=== PATIENT | male | born 1995 | race Caucasian/White ===

== ENCOUNTER → 2020-12-11 13:07 | Outpatient (BNVA) | payer OTHER, SELFPAY | PROVIDERS: Visit Provider Internal Medicine ==

== ENCOUNTER → 2020-12-20 13:52 | Outpatient (BNVA) | payer OTHER, SELFPAY | PROVIDERS: Visit Provider Internal Medicine | DX: Z72.89 Other problems related to lifestyle (principal) | CPT/HCPCS: 80305 ==

== ENCOUNTER → 2021-01-03 14:56 | Outpatient (BNVA) | payer OTHER, SELFPAY | PROVIDERS: Visit Provider Internal Medicine ==

== ENCOUNTER → 2021-03-11 11:40 | Outpatient (BNVA) | payer OTHER, SELFPAY | PROVIDERS: PCP Hospitalist; Visit Provider Internal Medicine | DX: F10.10 Alcohol abuse, uncomplicated (principal) | CPT/HCPCS: 80305; 96372 ==

== ENCOUNTER → 2021-04-08 10:23 | Outpatient (BNVA) | payer MEDICAID, SELFPAY | PROVIDERS: PCP Hospitalist; Visit Provider Internal Medicine | DX: F10.11 Alcohol abuse, in remission (principal) | CPT/HCPCS: 80305; 96372; 99212; J2315 ==

== ENCOUNTER → 2021-05-06 13:49 | Outpatient (BNVA) | payer MEDICAID, SELFPAY | PROVIDERS: Visit Provider Internal Medicine | DX: F10.10 Alcohol abuse, uncomplicated (principal); F17.200 Nicotine dependence, unspecified, uncomplicated; Z23 Encounter for immunization | CPT/HCPCS: 80305; 96372; 99212; J2315 ==

== ENCOUNTER → 2021-06-03 13:44 | Outpatient (BNVA) | payer MEDICAID, SELFPAY | PROVIDERS: Visit Provider Internal Medicine | DX: Z51.81 Encounter for therapeutic drug level monitoring (principal); F10.10 Alcohol abuse, uncomplicated | CPT/HCPCS: 80305; 96372; 99212; J2315 ==

== ENCOUNTER → 2021-07-01 14:30 | Outpatient (BNVA) | payer MEDICAID, SELFPAY | PROVIDERS: Visit Provider Internal Medicine | DX: F10.10 Alcohol abuse, uncomplicated (principal); Z51.81 Encounter for therapeutic drug level monitoring; Z79.899 Other long term (current) drug therapy | CPT/HCPCS: 96372; 99212 ==

== ENCOUNTER → 2021-07-29 14:27 | Outpatient (BNVA) | payer MEDICAID, SELFPAY | PROVIDERS: Visit Provider Internal Medicine | DX: F10.10 Alcohol abuse, uncomplicated (principal) | CPT/HCPCS: 80305; 96372; 99212; J2315 ==

== ENCOUNTER → 2021-08-26 14:25 | Outpatient (BNVA) | payer MEDICAID, SELFPAY | PROVIDERS: Visit Provider Internal Medicine | DX: F10.10 Alcohol abuse, uncomplicated (principal); Z51.81 Encounter for therapeutic drug level monitoring; Z79.01 Long term (current) use of anticoagulants | CPT/HCPCS: 96372; 99212; J2315 ==

== ENCOUNTER → 2021-10-08 15:19 | Outpatient (BNVA) | payer MEDICAID, SELFPAY | PROVIDERS: Visit Provider Internal Medicine | DX: F10.10 Alcohol abuse, uncomplicated (principal) | CPT/HCPCS: 96372; 99212; J2315 ==

== ENCOUNTER → 2021-11-11 14:38 | Outpatient (BNVA) | payer MEDICAID, SELFPAY | PROVIDERS: Visit Provider Internal Medicine | DX: F10.10 Alcohol abuse, uncomplicated (principal) | CPT/HCPCS: 96372; 99212; J2315 ==

== ENCOUNTER → 2021-12-19 16:58 | Outpatient (BNVA) | payer MEDICAID, SELFPAY | PROVIDERS: Visit Provider Internal Medicine | DX: F10.10 Alcohol abuse, uncomplicated (principal) | CPT/HCPCS: 80305; 96372; 99212; J2315 ==

== ENCOUNTER → 2022-01-27 15:35 | Outpatient (BNVA) | payer OTHER, SELFPAY | PROVIDERS: Visit Provider Internal Medicine | DX: F10.10 Alcohol abuse, uncomplicated (principal); F17.200 Nicotine dependence, unspecified, uncomplicated; Z51.81 Encounter for therapeutic drug level monitoring | CPT/HCPCS: 99212; J2315 ==

== ENCOUNTER → 2022-02-24 15:01 | Outpatient (BNVA) | payer OTHER, SELFPAY | PROVIDERS: Visit Provider Internal Medicine | DX: Z51.81 Encounter for therapeutic drug level monitoring (principal); F10.10 Alcohol abuse, uncomplicated; F17.210 Nicotine dependence, cigarettes, uncomplicated | CPT/HCPCS: 99212 ==

== ENCOUNTER → 2022-03-04 14:55 | Outpatient (BNVA) | payer OTHER, SELFPAY | PROVIDERS: Visit Provider Internal Medicine | DX: F10.10 Alcohol abuse, uncomplicated (principal) | CPT/HCPCS: 99212 ==

== ENCOUNTER 2022-05-01 20:23 | Emergency (ER) | payer OTHER, SELFPAY ==
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
[2022-05-01 20:38] VITALS: BP 159/106; PULSE 103; RESP 16; TEMP 36.8; O2SAT 95; BMI 25.3
--- NOTE | 2022-05-01 20:57 | PC.NURSE ---
Pt presented to ER with thoughts of harming himself. Pt states he wants to tie something around his neck so he can't breathe anymore. Pt reported he is going through a breakup at the moment. Also admits to daily drinking, a sleeve of nips per day. Pt states he is still having thoughts of hurting himself. Pt also presented with self-inflicted wounds in on his right arm. Pt states they were caused by scissors. One wound, closer to the hand, is large and wide. Bleeding is controlled, wound was cleaned and bandaged. Pt continues to fidget with the bandage, appears very fixated on the wound, commenting that he is impressed at the size and he wants more cuts. Pt also reported he punched a table at home. His left hand is swollen and bruised, pt reports pain in the hand as well. Expects it may be broken, as he has broken it in the past.
[2022-05-01 21:04] VITALS: BP 159/106; PULSE 103; RESP 16; TEMP 36.8; O2SAT 95
[2022-05-01 21:06] LABS: Appearance Urine Clear; Color Urine Yellow; Glucose Urine UA Negative (Negative); Leukocyte Esterase Urine Small (1+) (Negative); Nitrite Urine Negative (Negative); PH 6.5 (5.0-9.0); UMIC TRIGGER UACC YES; Urine Blood Negative (Negative); Urine Ketones Negative (Negative); Urine Protein Negative (Neg-Trace)
[2022-05-01 21:18] LABS: COVID-19 Test Negative (Negative)
--- NOTE | 2022-05-01 21:20 | PC.NURSE ---
N referral complete. COVID and urines sent to the lab.
[2022-05-01 21:22] LABS: Amphetamine Screen Urine Not Detected (Not Detect); Barbiturates, Urine Not Detected (Not Detect); Benzodiazepines Screen Urine Not Detected (Not Detect); Cannabinoid Screen Urine Not Detected (Not Detect); Cocaine Screen Urine Not Detected (Not Detect); Fentanyl, urine Not Detected (Not Detect); Opiate Screen Urine Not Detected (Not Detect); Phencyclidine Screen Urine Not Detected (Not Detect)
[2022-05-01 21:24] LABS: Bacteria Urine None Seen (None Seen); Hyaline Casts Urine 0-2 /LPF (0-2); RBC Urine 0-2 /HPF (0-2); Squamous Epithelial Cell Urine 0-2 /HPF (0-2); UACC Culture Trigger YES; WBC Urine 0-5 /HPF (0-5)
--- NOTE | 2022-05-01 21:25 | ED.PSYCH ---
HPI - Psych General Chief Complaint: Psychiatric Symptoms <GLENYS Sales Last Filed: 05/01/22 23:20> Stated Complaint: Suicidal / Open cut on arm <GLENYS Sales Last Filed: 05/01/22 23:20> Time Seen by Provider: 05/01/22 20:54 <GLENYS Sales Last Filed: 05/01/22 23:20> Source: patient <GLENYS Sales Last Filed: 05/01/22 23:20> Mode of arrival: ambulatory <GLENYS Sales Last Filed: 05/01/22 23:20> Limitations: no limitations <GLENYS Sales Last Filed: 05/01/22 23:20> History of Present Illness HPI Narrative: 27-year-old male history of alcohol abuse, anxiety, depression presents with suicide attempt by cutting wrist, patient reports that he was also drinking tonight, he reports he is having a tough time coping with a recent break up. Patient also reports anxiety and depression. He tells me cut his wrist in hopes to kill himself. Denies visual, auditory and tactile hallucinations. Reports marijuana use however no other drugs, he also reports alcohol use had a sleeve of whiskey, and tells me that he smokes 1 pack of cigarettes per day. Patient denies medical complaints at this time. Unsure of tetanus status <GLENYS Sales Last Filed: 05/01/22 23:20> Related Data Home Medications: Home Medications Medication Instructions Recorded Confirmed escitalopram oxalate 20 mg tablet 20 mg PO DAILY 12/11/20 05/01/22 bupropion HCl 300 mg 24 hr tablet, 300 mg PO DAILY 05/01/22 05/01/22 extended release <GLENYS Sales Last Filed: 05/01/22 23:20> Allergies/Adverse Reactions: Allergies Allergy/AdvReac Type Severity Reaction Status Date / Time No Known Allergies Allergy Verified 02/24/22 15:21 [No Known Allergies*] <GLENYS Sales Last Filed: 05/01/22 23:20> Review of Systems Review of Systems: Constitutional : No Weight loss, No Fever, No Chills, No Fatigue, No Malaise ENT/Mouth : No sore throat, No Rhinorrhea Eyes: No Eye Pain, No Swelling, No Redness Cardiovascular : No Chest Pain, No SOB, No Dyspnea on Exertion, No Orthopnea, No Edema, No Palpitations Respiratory : No Cough, No Sputum, No Wheezing Gastrointestinal : No Nausea, No Vomiting, No Diarrhea, No Constipation, No abdominal Pain, No Hematochezia, No Melena Genitourinary : No Dysuria, No Urinary Frequency, No Hematuria, Musculoskeletal : No joint pain, No Myalgias, No Joint Swelling Skin : No Skin Lesions, No rash Neuro : No Weakness, No Numbness, No Dizziness, No Headache Psych : No Anxiety/Panic, No Depression All other systems reviewed and are negative <GLENYS Sales - Last Filed: 05/01/22 23:20> Yes all other systems are reviewed and are negative <GLENYS Sales - Last Filed: 05/01/22 23:20> [facility] [place] Past Medical History Attestation statement: The following information was validated with the patient. <GLENYS Sales - Last Filed: 05/01/22 23:20> Source: old records reviewed and nursing notes reviewed <GLENYS Sales - Last Filed: 05/01/22 23:20> Medical History: Medical History Alcohol abuse Alcohol use disorder <GLENYS Sales - Last Filed: 05/01/22 23:20> Family History Family History: Family History Mother Depression Father Testicular cancer <GLENYS Sales - Last Filed: 05/01/22 23:20> Social History Social History: Social History Alcohol intake: current Alcohol intake frequency: 3 or more drinks per day Patient Tobacco Use Status: Current everyday Tobacco user Cigarettes Per Day: 20 Years Smoked: 10 Smoked in Last 30 Days: Yes Use of substances other than those prescribed or required for medical reasons: No Advance Directives: No Advance Directives Information Provided: No <GLENYS Sales - Last Filed: 05/01/22 23:20> Physical Exam Vital Signs: Vital Signs: Last Vital Signs Temp 98.5 F 05/02/22 06:39 Pulse 72 05/02/22 06:39 Resp 17 05/02/22 06:39 BP 140/89 H 05/02/22 06:39 Pulse Ox 97 05/02/22 06:39 O2 Del Method 05/02/22 06:39 BMI result Body Mass Index 25.3 vss hypertension likely secondary to anxiety <GLENYS Sales - Last Filed: 05/01/22 23:20> Vital Signs: Last Vital Signs Temp 98.5 F 05/02/22 06:39 Pulse 72 05/02/22 06:39 Resp 17 05/02/22 06:39 BP 140/89 H 05/02/22 06:39 Pulse Ox 97 05/02/22 06:39 O2 Del Method 05/02/22 06:39 BMI result Body Mass Index 25.3 <Pollo Hanson MD - Last Filed: 05/02/22 10:45> Appearance: Alert.? Oriented X3.? No acute distress.? Head: Normocephalic, atraumatic, no step-offs or deformities Eyes: Pupils equal, round and reactive to light.? Neck: Normal inspection.? Neck supple.? CVS: Normal heart rate and rhythm.? Pulses normal.? Respiratory: No respiratory distress.? Breath sounds normal.? Abdomen: Soft and nontender.? Skin: Skin warm and dry.? Normal skin color.? Normal skin turgor.?+ self inflected a laceration to left wrist, will require repair Extremities: No lower extremity edema.? No calf ttp. 5/5 strength to bilateral upper and lower extremities 2+ radial pulses equal bilateral. No wrist drop. Swelling to the dorsal aspects of bilateral hands with some ecchymosis. Neuro: Oriented X 3.? No motor deficit.? No sensory deficit. CN 2-12 intact <GLENYS Sales - Last Filed: 05/01/22 23:20> Course Reevaluation(s) Reevaluation #1: 3 x 4-0 sutures were used wrist laceration. Patient tolerated procedure well. Will be given Boostrix shot. Return in 7-10 day for suture removal. CBC appears to be within normal limits. Chemistry with elevated anion gap likely secondary to patient drinking a whole sleeve of whiskey. UA without infection urine toxicology negative. Ethanol 141. Patient COVID negative. X-ray of bilateral hands within normal limits. At this time patient will be placed into physician observation to allow more time to be evaluated by the behavioral health team. At time observation was started patient common cooperative no acute distress. <GLENYS Sales - Last Filed: 05/01/22 23:20> Time: 23:19 <GLENYS Sales - Last Filed: 05/01/22 23:20> Reevaluation #2: 27-year-old male came in last night in alcohol intoxication with SI, patient used a scissors to cut his wrist intentionally to hurt himself, patient had a history of suicidal attempt and hanging himself. Patient is under Section 12. And bed search is underway. Continues physician observation <Pollo Hanson MD - Last Filed: 05/02/22 10:45> Time: 10:42 <Pollo Hanson MD - Last Filed: 05/02/22 10:45> Medications Administered Discontinued Medications Generic Name Dose Route Start Last Admin Trade Name Freq PRN Reason Stop Dose Admin Diphtheria/Tetanus/Acell Pertussis 0.5 ml 05/01/22 22:06 05/01/22 22:26 Diphth,Pertus(Acell),Tet Adult 0.5 Ml Syringe IM 05/01/22 22:07 0.5 ml .ONCE ONE Administration Lidocaine HCl 20 ml 05/01/22 21:23 05/01/22 22:05 Lidocaine Hcl 1 % 20 Ml Vial SUBCUT 05/01/22 21:24 20 ml ONCE ONE Administration <GLENYS Sales - Last Filed: 05/01/22 23:20> Medications Administered Discontinued Medications Generic Name Dose Route Start Last Admin Trade Name Freq PRN Reason Stop Dose Admin Diphtheria/Tetanus/Acell Pertussis 0.5 ml 05/01/22 22:06 05/01/22 22:26 Diphth,Pertus(Acell),Tet Adult 0.5 Ml Syringe IM 05/01/22 22:07 0.5 ml .ONCE ONE Administration Lidocaine HCl 20 ml 05/01/22 21:23 05/01/22 22:05 Lidocaine Hcl 1 % 20 Ml Vial SUBCUT 05/01/22 21:24 20 ml ONCE ONE Administration <Pollo Hanson MD - Last Filed: 05/02/22 10:45> MDM - Psych MDM Narrative Medical decision making narrative: [id number] 27-year-old male presents with suicidal ideation with attempt to his arrival, patient cut his wrist in hopes to . Also reports alcohol tonight. Reports increasing life stressors and a recent relationship break-up. Physical examination with self-inflicted wounds, ecchymosis and swelling noted to bilateral dorsal aspects of hand. Full range of motion to hand and wrist. Will rule out fractures and dislocations. Plan at this time medical clearance evaluation by the behavioral health team. Patient will be placed on a Section 12 <GLENYS Sales - Last Filed: 05/01/22 23:20> Medical Records Attestation: I reviewed the patient's medical records. <GLENYS Sales - Last Filed: 05/01/22 23:20> Lab Data Attestation: I reviewed the patient's lab results. <GLENYS Sales - Last Filed: 05/01/22 23:20> Result diagrams: : 05/01/22 22:21 05/01/22 22:21 <GLENYS Sales - Last Filed: 05/01/22 23:20> Labs: Lab Results 05/01/22 05/01/22 05/01/22 Range/Units 20:56 20:56 20:56 WBC (4.8-10.8) X10*3/uL RBC (4.60-5.80) X10*6/uL Hgb (14.0-18.0) g/dl Hct (42.0-52.0) % MCV (80.0-98.0) fL MCH (27.0-33.0) pg MCHC (31.0-36.0) g/dl RDW (11.0-16.0) % Plt Count (160-400) X10*3/uL MPV (9.4-12.4) fL Immature Gran % (Auto) (0.0-0.4) % Neut % (Auto) (45-73) % Lymph % (Auto) (20-40) % [place] % (Auto) (2-11) % Eos % (Auto) (0-4) % Baso % (Auto) (0-2) % Lymph # (Auto) (1.2-4.9) X10*3/uL [place] # (Auto) (0.1-1.2) X10*3/uL Eos # (Auto) (0.0-0.4) X10*3/uL Baso # (Auto) (0.0-0.2) X10*3/uL Abs Immat Gran (auto) (0.00-0.03) X10*3/uL Absolute Neuts (auto) (2.0-8.3) x10*3/uL Absolute Nucleated RBC (0.0-0.012) X10*3/uL Nucleated RBC % (auto) (0.0-0.2) /100WBC Sodium (135-145) mmol/L Potassium (3.3-5.1) mmol/L Chloride (96-108) mmol/L Carbon Dioxide (22-29) mmol/L Anion Gap (12-20) BUN (9-16) mg/dL Creatinine (0.5-1.4) mg/dL Estim Creat Clear Calc Estimated GFR Random Glucose (60-115) mg/dL Calcium (8.4-10.2) mg/dL Magnesium (1.6-2.6) mg/dL Total Bilirubin (0.0-1.0) mg/dL AST (5-37) U/L ALT (0-40) U/L Alkaline Phosphatase (39-117) U/L Total Protein (6.5-8.0) g/dL Albumin (3.5-5.0) g/dL Urine Color Yellow Urine Appearance Clear Urine pH 6.5 (5.0-9.0) Ur Specific [place] 1.010 (1.005-1.025) Urine Protein Negative (Neg-Trace) mg/dL Urine Glucose (UA) Negative (Negative) mg/dL Urine Ketones Negative (Negative) mg/dL Urine Blood Negative (Negative) Urine Nitrite Negative (Negative) Ur Leukocyte Esterase Small (1+) H (Negative) Urine RBC 0-2 (0-2) /HPF Urine WBC 0-5 (0-5) /HPF Ur Squamous Epith Cells 0-2 (0-2) /HPF Urine Bacteria None Seen (None Seen) Hyaline Casts 0-2 (0-2) /LPF Urine Opiates Screen Not Detected (Not Detect) Urine Fentanyl Screen Not Detected (Not Detect) Ur Barbiturates Screen Not Detected (Not Detect) Ur Phencyclidine Scrn Not Detected (Not Detect) Ur Amphetamines Screen Not Detected (Not Detect) U Benzodiazepines Scrn Not Detected (Not Detect) Urine Cocaine Screen Not Detected (Not Detect) U Marijuana (THC) Screen Not Detected (Not Detect) Ethyl Alcohol mg/dL COVID-19 (ESDRAS) Negative (Negative) COVID-19 Clin Com See Note 05/01/22 05/01/22 Range/Units 22:21 22:21 WBC 10.5 (4.8-10.8) X10*3/uL RBC 5.30 (4.60-5.80) X10*6/uL Hgb 17.5 (14.0-18.0) g/dl Hct 49.3 (42.0-52.0) % MCV 93.0 (80.0-98.0) fL MCH 33.0 (27.0-33.0) pg MCHC 35.5 (31.0-36.0) g/dl RDW 12.1 (11.0-16.0) % Plt Count 277 (160-400) X10*3/uL MPV 9.4 (9.4-12.4) fL Immature Gran % (Auto) 0.7 H (0.0-0.4) % Neut % (Auto) 59.6 (45-73) % Lymph % (Auto) 30.4 (20-40) % [place] % (Auto) 8.1 (2-11) % Eos % (Auto) 0.7 (0-4) % Baso % (Auto) 0.5 (0-2) % Lymph # (Auto) 3.2 (1.2-4.9) X10*3/uL [place] # (Auto) 0.9 (0.1-1.2) X10*3/uL Eos # (Auto) 0.1 (0.0-0.4) X10*3/uL Baso # (Auto) 0.1 (0.0-0.2) X10*3/uL Abs Immat Gran (auto) 0.07 H (0.00-0.03) X10*3/uL Absolute Neuts (auto) 6.3 (2.0-8.3) x10*3/uL Absolute Nucleated RBC 0.000 (0.0-0.012) X10*3/uL Nucleated RBC % (auto) 0.0 (0.0-0.2) /100WBC Sodium 145 (135-145) mmol/L Potassium 4.0 (3.3-5.1) mmol/L Chloride 107 (96-108) mmol/L Carbon Dioxide 20 L (22-29) mmol/L Anion Gap 22 H (12-20) BUN 9 (9-16) mg/dL Creatinine 0.81 (0.5-1.4) mg/dL Estim Creat Clear Calc 150.3 Estimated GFR > 60 Random Glucose 92 (60-115) mg/dL Calcium 9.4 (8.4-10.2) mg/dL Magnesium 2.4 (1.6-2.6) mg/dL Total Bilirubin 1.2 H (0.0-1.0) mg/dL AST 23 (5-37) U/L ALT 17 (0-40) U/L Alkaline Phosphatase 66 (39-117) U/L Total Protein 7.5 (6.5-8.0) g/dL Albumin 4.8 (3.5-5.0) g/dL Urine Color Urine Appearance Urine pH (5.0-9.0) Ur Specific [place] (1.005-1.025) Urine Protein (Neg-Trace) mg/dL Urine Glucose (UA) (Negative) mg/dL Urine Ketones (Negative) mg/dL Urine Blood (Negative) Urine Nitrite (Negative) Ur Leukocyte Esterase (Negative) Urine RBC (0-2) /HPF Urine WBC (0-5) /HPF Ur Squamous Epith Cells (0-2) /HPF Urine Bacteria (None Seen) Hyaline Casts (0-2) /LPF Urine Opiates Screen (Not Detect) Urine Fentanyl Screen (Not Detect) Ur Barbiturates Screen (Not Detect) Ur Phencyclidine Scrn (Not Detect) Ur Amphetamines Screen (Not Detect) U Benzodiazepines Scrn (Not Detect) Urine Cocaine Screen (Not Detect) U Marijuana (THC) Screen (Not Detect) Ethyl Alcohol 141 mg/dL COVID-19 (ESDRAS) (Negative) COVID-19 Clin Com <GLENYS Sales - Last Filed: 05/01/22 23:20> Lab Results 05/01/22 05/01/22 05/01/22 Range/Units 20:56 20:56 20:56 WBC (4.8-10.8) X10*3/uL RBC (4.60-5.80) X10*6/uL Hgb (14.0-18.0) g/dl Hct (42.0-52.0) % MCV (80.0-98.0) fL MCH (27.0-33.0) pg MCHC (31.0-36.0) g/dl RDW (11.0-16.0) % Plt Count (160-400) X10*3/uL MPV (9.4-12.4) fL Immature Gran % (Auto) (0.0-0.4) % Neut % (Auto) (45-73) % Lymph % (Auto) (20-40) % [place] % (Auto) (2-11) % Eos % (Auto) (0-4) % Baso % (Auto) (0-2) % Lymph # (Auto) (1.2-4.9) X10*3/uL [place] # (Auto) (0.1-1.2) X10*3/uL Eos # (Auto) (0.0-0.4) X10*3/uL Baso # (Auto) (0.0-0.2) X10*3/uL Abs Immat Gran (auto) (0.00-0.03) X10*3/uL Absolute Neuts (auto) (2.0-8.3) x10*3/uL Absolute Nucleated RBC (0.0-0.012) X10*3/uL Nucleated RBC % (auto) (0.0-0.2) /100WBC Sodium (135-145) mmol/L Potassium (3.3-5.1) mmol/L Chloride (96-108) mmol/L Carbon Dioxide (22-29) mmol/L Anion Gap (12-20) BUN (9-16) mg/dL Creatinine (0.5-1.4) mg/dL Estim Creat Clear Calc Estimated GFR Random Glucose (60-115) mg/dL Calcium (8.4-10.2) mg/dL Magnesium (1.6-2.6) mg/dL Total Bilirubin (0.0-1.0) mg/dL AST (5-37) U/L ALT (0-40) U/L Alkaline Phosphatase (39-117) U/L Total Protein (6.5-8.0) g/dL Albumin (3.5-5.0) g/dL Urine Color Yellow Urine Appearance Clear Urine pH 6.5 (5.0-9.0) Ur Specific [place] 1.010 (1.005-1.025) Urine Protein Negative (Neg-Trace) mg/dL Urine Glucose (UA) Negative (Negative) mg/dL Urine Ketones Negative (Negative) mg/dL Urine Blood Negative (Negative) Urine Nitrite Negative (Negative) Ur Leukocyte Esterase Small (1+) H (Negative) Urine RBC 0-2 (0-2) /HPF Urine WBC 0-5 (0-5) /HPF Ur Squamous Epith Cells 0-2 (0-2) /HPF Urine Bacteria None Seen (None Seen) Hyaline Casts 0-2 (0-2) /LPF Urine Opiates Screen Not Detected (Not Detect) Urine Fentanyl Screen Not Detected (Not Detect) Ur Barbiturates Screen Not Detected (Not Detect) Ur Phencyclidine Scrn Not Detected (Not Detect) Ur Amphetamines Screen Not Detected (Not Detect) U Benzodiazepines Scrn Not Detected (Not Detect) Urine Cocaine Screen Not Detected (Not Detect) U Marijuana (THC) Screen Not Detected (Not Detect) Ethyl Alcohol mg/dL COVID-19 (ESDRAS) Negative (Negative) COVID-19 Clin Com See Note 05/01/22 05/01/22 Range/Units 22:21 22:21 WBC 10.5 (4.8-10.8) X10*3/uL RBC 5.30 (4.60-5.80) X10*6/uL Hgb 17.5 (14.0-18.0) g/dl Hct 49.3 (42.0-52.0) % MCV 93.0 (80.0-98.0) fL MCH 33.0 (27.0-33.0) pg MCHC 35.5 (31.0-36.0) g/dl RDW 12.1 (11.0-16.0) % Plt Count 277 (160-400) X10*3/uL MPV 9.4 (9.4-12.4) fL Immature Gran % (Auto) 0.7 H (0.0-0.4) % Neut % (Auto) 59.6 (45-73) % Lymph % (Auto) 30.4 (20-40) % [place] % (Auto) 8.1 (2-11) % Eos % (Auto) 0.7 (0-4) % Baso % (Auto) 0.5 (0-2) % Lymph # (Auto) 3.2 (1.2-4.9) X10*3/uL [place] # (Auto) 0.9 (0.1-1.2) X10*3/uL Eos # (Auto) 0.1 (0.0-0.4) X10*3/uL Baso # (Auto) 0.1 (0.0-0.2) X10*3/uL Abs Immat Gran (auto) 0.07 H (0.00-0.03) X10*3/uL Absolute Neuts (auto) 6.3 (2.0-8.3) x10*3/uL Absolute Nucleated RBC 0.000 (0.0-0.012) X10*3/uL Nucleated RBC % (auto) 0.0 (0.0-0.2) /100WBC Sodium 145 (135-145) mmol/L Potassium 4.0 (3.3-5.1) mmol/L Chloride 107 (96-108) mmol/L Carbon Dioxide 20 L (22-29) mmol/L Anion Gap 22 H (12-20) BUN 9 (9-16) mg/dL Creatinine 0.81 (0.5-1.4) mg/dL Estim Creat Clear Calc 150.3 Estimated GFR > 60 Random Glucose 92 (60-115) mg/dL Calcium 9.4 (8.4-10.2) mg/dL Magnesium 2.4 (1.6-2.6) mg/dL Total Bilirubin 1.2 H (0.0-1.0) mg/dL AST 23 (5-37) U/L ALT 17 (0-40) U/L Alkaline Phosphatase 66 (39-117) U/L Total Protein 7.5 (6.5-8.0) g/dL Albumin 4.8 (3.5-5.0) g/dL Urine Color Urine Appearance Urine pH (5.0-9.0) Ur Specific [place] (1.005-1.025) Urine Protein (Neg-Trace) mg/dL Urine Glucose (UA) (Negative) mg/dL Urine Ketones (Negative) mg/dL Urine Blood (Negative) Urine Nitrite (Negative) Ur Leukocyte Esterase (Negative) Urine RBC (0-2) /HPF Urine WBC (0-5) /HPF Ur Squamous Epith Cells (0-2) /HPF Urine Bacteria (None Seen) Hyaline Casts (0-2) /LPF Urine Opiates Screen (Not Detect) Urine Fentanyl Screen (Not Detect) Ur Barbiturates Screen (Not Detect) Ur Phencyclidine Scrn (Not Detect) Ur Amphetamines Screen (Not Detect) U Benzodiazepines Scrn (Not Detect) Urine Cocaine Screen (Not Detect) U Marijuana (THC) Screen (Not Detect) Ethyl Alcohol 141 mg/dL COVID-19 (ESDRAS) (Negative) COVID-19 Clin Com <Pollo Hanson MD - Last Filed: 05/02/22 10:45> Critical Care Time Critical Care Time Critical Care Time: No <GLENYS Sales - Last Filed: 05/01/22 23:20> Discharge Plan Discharge Clinical Impression: Alcohol abuse, Suicidal ideation, Laceration, Depression <GLENYS Sales - Last Filed: 05/01/22 23:20> Patient Disposition: Still a Patient <GLENYS Sales - Last Filed: 05/01/22 23:20> Additional Instructions: Take your medications as prescribed. If you were prescribed antibiotics today, it is important that you take your medication to their entirety, do not skip any doses, do not finish them early. Follow-up with your primary care provider this week. Return to the emergency department with new or worsening symptoms. Such as fevers, chills, chest pain, shortness of breath, nausea, vomiting, dizziness, headache, vision changes, lethargy In case of emergency call 911 Return for suture removal in 7-10 days <GLENYS Sales - Last Filed: 05/01/22 23:20> Prescriptions: No Action bupropion HCl 300 mg tablet extended release 24 hr 300 mg PO DAILY escitalopram oxalate 20 mg tablet 20 mg PO DAILY <GLENYS Sales - Last Filed: 05/01/22 23:20>
[2022-05-01] MEDS: Lidocaine HCl 1 % 20 ML VIAL SUBCUT (22:05)
--- NOTE | 2022-05-01 22:06 | PC.NURSE ---
Provider came to assess the pt. She put 4 sutures in the wound on his right wrist. Bleeding is controlled, nonadhesive dressing applied.
--- NOTE | 2022-05-01 22:14 | PHA.MEDREC ---
Pharmacy Consult ? Medication Reconciliation Pharmacy has completed the medication reconciliation. Patient states he is only on bupropion and escitalopram daily normally but has been taking a nasal decongestant lately because he has had a cold. He doesn't know which decongestant it is that he's been using.
[2022-05-01 22:26] LABS: Basophils Absolute Auto 0.1 X10*3/uL (0.0-0.2); Basophils Percent Auto 0.5 % (0-2); Eosinophils Absolute Auto 0.1 X10*3/uL (0.0-0.4); Eosinophils Percent Auto 0.7 % (0-4); Hematocrit 49.3 % (42.0-52.0); Hemoglobin 17.5 g/dl (14.0-18.0); Imm Gran Abs Auto 0.07 X10*3/uL (0.00-0.03); Imm Gran Pct Auto 0.7 % (0.0-0.4); Lymphocytes Absolute Auto 3.2 X10*3/uL (1.2-4.9); Lymphocytes Percent Auto 30.4 % (20-40); MANUAL DIFF FLAG NO; Mean Corpuscular HGB Conc 35.5 g/dl (31.0-36.0); Mean Platelet Volume 9.4 fL (9.4-12.4); Monocytes Absolute Auto 0.9 X10*3/uL (0.1-1.2); Monocytes Percent Auto 8.1 % (2-11); Neutrophils Absolute Auto 6.3 x10*3/uL (2.0-8.3); Neutrophils Percent Auto 59.6 % (45-73); Platelet Count 277 X10*3/uL (160-400); Red Cell Distribution Width 12.1 % (11.0-16.0); White Blood Count 10.5 X10*3/uL (4.8-10.8)
[2022-05-01] MEDS: Diphth,Pertus(ACell),Tet Adult 0.5 ML SYRINGE IM (22:26)
[2022-05-01 22:49] LABS: Alanine Aminotransferase 17 U/L (0-40); Albumin Level 4.8 g/dL (3.5-5.0); Alkaline Phosphatase 66 U/L (39-117); Anion Gap 22 (12-20); Aspartate Amino Transferase 23 U/L (5-37); Bilirubin Total 1.2 mg/dL (0.0-1.0); Blood Urea Nitrogen 9 mg/dL (9-16); Calcium 9.4 mg/dL (8.4-10.2); Carbon Dioxide 20 mmol/L (22-29); Chloride 107 mmol/L (96-108); Creatinine Clr Calc Pharmacy 150.3; Estimated Glomerular Filt Rate > 60; Ethanol 141 mg/dL; Glucose Random 92 mg/dL (60-115); Magnesium 2.4 mg/dL (1.6-2.6); Sodium 145 mmol/L (135-145); Total Protein 7.5 g/dL (6.5-8.0)
--- NOTE | 2022-05-01 22:56 | PC.NURSE ---
[facility] Called to report that pt insurance is private and referral should be to CARE team. I informed CARE team of the issue and they reported registration cannot verify the insurance. CARE team reported pt will not be seen tonight and they will have someone look into it in the morning.
[2022-05-02 06:39] VITALS: BP 140/89; PULSE 72; RESP 17; TEMP 36.9; O2SAT 97
== END 2022-05-02 16:42 | disposition home or self-care (01) ==
PROVIDERS: Physician Assistant; Emergency Provider Student in an Organized Health Care Education/Training Program
DX: F33.1 Major depressive disorder, recurrent, moderate (principal); T14.91XA Suicide attempt, initial encounter; F41.1 Generalized anxiety disorder; F43.0 Acute stress reaction; S61.512A Laceration without foreign body of left wrist, initial encounter; S61.511A Laceration without foreign body of right wrist, initial encounter; S60.812A Abrasion of left wrist, initial encounter; S60.811A Abrasion of right wrist, initial encounter; F17.210 Nicotine dependence, cigarettes, uncomplicated; X78.1XXA Intentional self-harm by knife, initial encounter; Y93.9 Activity, unspecified; Y92.9 Unspecified place or not applicable; Y99.9 Unspecified external cause status; Z20.822 Contact with and (suspected) exposure to COVID-19; Z79.899 Other long term (current) drug therapy; Z71.6 Tobacco abuse counseling
CPT/HCPCS: 12002; 36415; 73130; 80053; 80307; 81001; 82077; 83735; 85025; 87086; 87635; 90471; 90715; 99285

== ENCOUNTER 2022-05-08 15:35 | Emergency (ER) | payer OTHER, SELFPAY ==
--- NOTE | 2022-05-08 16:09 | ED_ITS ---
HPI - Wound/Laceration General Stated Complaint: suture removal Time Seen by Provider: 05/08/22 15:50 Source: patient Mode of arrival: ambulatory Limitations: no limitations History of Present Illness HPI narrative: Patient comes to the emergency room for suture removal on his right wrist. Patient had stitches applied on May 01. Patient has been healing well, no complications, no pain, no cellulitis Related Data Home Medications Medication Instructions Recorded Confirmed escitalopram oxalate 20 mg tablet 20 mg PO DAILY 12/11/20 05/01/22 bupropion HCl 300 mg 24 hr tablet, 300 mg PO DAILY 05/01/22 05/01/22 extended release Allergies Allergy/AdvReac Type Severity Reaction Status Date / Time No Known Allergies Allergy Verified 02/24/22 15:21 [No Known Allergies*] Review of Systems Review of Systems: Constitutional : No Weight loss, No Fever, No Chills, No Night Sweats, No Fatigue, No Malaise ENT/Mouth : No Hearing loss, No Ear Pain, No Nasal Congestion, No Sinus Pain, No Hoarseness, No sore throat, No Rhinorrhea, No Swallowing Difficulty Eyes: No Eye Pain, No Swelling, No Redness, No Foreign Body, No Discharge, No Vision Changes Cardiovascular : No Chest Pain, No SOB, No Dyspnea on Exertion, No Orthopnea, No Edema, No Palpitations Respiratory : No Cough, No Sputum, No Wheezing, No Smoke Exposure, No Dyspnea Gastrointestinal : No Nausea, No Vomiting, No Diarrhea, No Constipation, No a bdominal Pain, No Hematochezia, No Melena Genitourinary : no irregular bleeding, No Dysuria, No Urinary Frequency, No Hematuria, No Urinary Incontinence, No Urgency, No Flank Pain, No Urinary Flow Changes, No Hesitancy Musculoskeletal : No joint pain, No Myalgias, No Joint Swelling Skin : skin laceration on the right wrist healing well. Neuro : No Weakness, No Numbness, No Paresthesias, No Loss of Consciousness, No Dizziness, No Headache Psych : No Anxiety/Panic, No Depression, No SI/HI/AH/VH, No Social Issues, Heme/Lymph: No Bruising, No Bleeding,No Lymphadenopathy Endocrine : No Polyuria, No Polydipsia, No Temperature Intolerance PMFSH Past Medical History Medical History Alcohol abuse Alcohol use disorder Family History Family History Mother Depression Father Testicular cancer Social History Social History Alcohol intake: current Alcohol intake frequency: 3 or more drinks per day Patient Tobacco Use Status: Current everyday Tobacco user Cigarettes Per Day: 20 Years Smoked: 10 Physical Exam Const: Other: Appearance: Alert. Oriented X3. No acute distress. Eyes: Pupils equal, round and reactive to light. ENT: Pharynx normal. Neck: Normal inspection. Neck supple. No lymph nodes noted. No crepitus CVS: Normal heart rate and rhythm. Pulses normal. Normal S1 and S2 Respiratory: No respiratory distress. Breath sounds normal. No Wheezing. No rales Abdomen: Soft and nontender. No rigidity. No distention. Skin: Skin warm and dry. Normal skin color. Normal skin turgor. Three sutures [address], skin healing well, no cellulitis, no pus drainage, no pain to palpation Extremities: No lower extremity edema. No Lacerations. No Rash Neuro: Oriented X 3. No motor deficit. No sensory deficit. Moving all extremities. No slurred speech. CN 2 through 12 grossly intact Psych: calm, cooperative, normal affect Course Course Course Narrative: 3 sutures were removed, no complications. Discharge Plan Discharge Clinical Impression: Visit for suture removal Patient Disposition: Home, Self-Care Instructions: Stitches Removal (ED) Additional Instructions: Please follow-up with your primary care physician tomorrow. If you have any worsening or new symptoms, please return to the emergency room or call 911 Prescriptions: No Action bupropion HCl 300 mg tablet extended release 24 hr 300 mg PO DAILY escitalopram oxalate 20 mg tablet 20 mg PO DAILY
[2022-05-08 16:28] VITALS: BP 145/83; PULSE 91; RESP 17; TEMP 36.6; O2SAT 96; BMI 24.4
== END 2022-05-08 16:36 | disposition home or self-care (01) ==
PROVIDERS: Emergency Provider Emergency Medicine
DX: Z48.02 Encounter for removal of sutures (principal); Z79.899 Other long term (current) drug therapy
CPT/HCPCS: 99283

== ENCOUNTER 2022-05-21 11:08 | Emergency (ER) | payer OTHER, SELFPAY ==
[2022-05-21 11:12] VITALS: BP 188/92; PULSE 90; RESP 20; TEMP 36.7; O2SAT 99; BMI 25.1
--- NOTE | 2022-05-21 11:49 | ED_ITS ---
HPI - Medical Clearance General Chief complaint: Medical Clearance Stated complaint: medication Time Seen by Provider: 05/21/22 11:55 Source: patient Mode of arrival: ambulatory Limitations: no limitations History of Present Illness HPI Narrative: Patient presents to ED for medication refill. Patient states no other physical complaints. Patient states he does not have a primary care provider for the past 2 weeks because he left the practice. Patient has been without meds for the past 2 weeks. Related Information Home Medications Medication Instructions Recorded Confirmed escitalopram oxalate 20 mg tablet 20 mg PO DAILY 12/11/20 05/01/22 bupropion HCl 300 mg 24 hr tablet, 300 mg PO DAILY 05/01/22 05/01/22 extended release Previous Rx's Medication Instructions Recorded bupropion HCl 300 mg 24 hr tablet, 300 mg PO QAM 14 days #14 tabs 05/21/22 extended release escitalopram oxalate 20 mg tablet 20 mg PO DAILY 14 days #14 tabs 05/21/22 Allergies Allergy/AdvReac Type Severity Reaction Status Date / Time No Known Allergies Allergy Verified 02/24/22 15:21 [No Known Allergies*] Review of Systems Review of Systems: Medication refill Yes all other systems are reviewed and are negative [facility] Past Medical History Medical History Alcohol abuse Alcohol use disorder Family History Family History Mother Depression Father Testicular cancer Social History Social History Alcohol intake: never Patient Tobacco Use Status: Current everyday Tobacco user Cigarettes Per Day: 20 Years Smoked: 10 Advance Directives: No Physical Exam Vital Signs: Vital Signs: Last Vital Signs Temp 98.1 F 05/21/22 11:12 Pulse 90 05/21/22 11:12 Resp 20 05/21/22 11:12 BP 188/92 H 05/21/22 11:12 Pulse Ox 99 05/21/22 11:12 O2 Del Method 05/21/22 11:12 BMI result Body Mass Index 25.1 Const: General: cooperative, healthy appearing, comfortable, no acute distress, well developed, alert, awake and Physically active Orientation/consciousness: oriented to time and patient oriented x3 HEENT: Head: Yes normal to inspection, Yes No palpable skull fracture present, Yes normocephalic, Yes atraumatic and No abrasion Eyes: General: appearance normal, both eyes and all related structures Neck: Neck: Yes normal visual inspection, Yes full ROM, Yes no lymphadenopathy, Yes no meningeal signs, Yes trachea midline, Yes supple, No anterior neck swelling and No tender Chest: Chest palpation & inspection: normal inspection of the chest and normal palpation of entire chest wall Resp: Effort & Inspection: normal respiratory effort and able to speak in complete sentences Auscultation: clear to auscultation bilaterally Cardio: Jugular venous distension: no JVD Heart sounds: S1 normal heart sound present and S2 normal heart sound present GI: Inspection: Yes normal to inspection and No abdominal wall ecchymosis Palpation (GI): Soft to palpation, not firm, nontender, no guarding and not rigid : General: No CVA tenderness and Yes no CVA tenderness Back/Spine/Pelvis: Back: no CVA tenderness, No CVA tenderness and No back tenderness Skin: General skin exam: no rashes or lesions noted and elasticity normal Neuro: General: oriented to time, patient oriented x3, gait normal, tone normal, no meningeal signs and CN's II-XI intact bilaterally Cranial nerves: Yes CN's II-XII intact bilaterally Extrem: General: Yes normal to inspection and Yes full ROM Psych: Appearance: grossly normal, well kempt and not disheveled Course Course Course Narrative: RME: Patient without his pyschiatrists and PCp due to them leaving practice. patient without bupropion HCL 300mg daily and escitalpram oxalate 20mg daily. patient states no phsycial complaints MDM - Medical Clearance MDM Narrative Medical decision making narrative: medical refill Discharge Plan Discharge Clinical Impression: Medication refill Patient Disposition: Home, Self-Care Instructions: Medicine Refill (ED) Additional Instructions: [place] [facility] [place] [facility] PCP to monitor your meds. Return to the ED for any physical or pyschiatrist complaints Prescriptions: New bupropion HCl 300 mg tablet extended release 24 hr 300 mg PO QAM 14 Days Qty: 14 0RF escitalopram oxalate 20 mg tablet 20 mg PO DAILY 14 Days Qty: 14 0RF No Action bupropion HCl 300 mg tablet extended release 24 hr 300 mg PO DAILY escitalopram oxalate 20 mg tablet 20 mg PO DAILY [place] [facility] [place] [facility] [[facility]] (medication refill of pysch meds) Interventions: ED Discharge Assessment Last Done: 05/21/22 12:01 Discharge Date/Time: 05/21/22 12:02 Print Language: Spanish
== END 2022-05-21 12:02 | disposition home or self-care (01) ==
PROVIDERS: Emergency Provider Emergency Medicine
DX: Z76.0 Encounter for issue of repeat prescription (principal); F17.210 Nicotine dependence, cigarettes, uncomplicated; F10.10 Alcohol abuse, uncomplicated
CPT/HCPCS: 99282

== ENCOUNTER 2022-05-31 10:20 | Emergency (ER) | payer MEDICAID, SELFPAY ==
[2022-05-31 10:40] VITALS: BP 153/99; PULSE 76; RESP 14; TEMP 36.1; O2SAT 97; BMI 25.1
--- NOTE | 2022-05-31 11:04 | ED.GENADULT ---
HPI - General Adult General Chief complaint: General Medical Stated complaint: med refill Time Seen by Provider: 05/31/22 11:03 Source: patient and old records reviewed Mode of arrival: ambulatory Limitations: no limitations History of Present Illness HPI narrative: 27 yo male with history of depression/anxiety presents to the ER for medication refill. He was seen here for the same on 05/21 and was sent 2 weeks worth of lexapro and wellbutrin. He has a few days left but does not have an appointment with his provider until the end of the month. No SI or HI. Feels well otherwise. complaint: med refill Onset (ago): day(s) Relieving factors: none Exacerbating factors: none Associated symptoms: denies other symptoms Treatments prior to arrival: none Related Data Home Medications Medication Instructions Recorded Confirmed escitalopram oxalate 20 mg tablet 20 mg PO DAILY 12/11/20 05/01/22 bupropion HCl 300 mg 24 hr tablet, 300 mg PO DAILY 05/01/22 05/01/22 extended release Previous Rx's Medication Instructions Recorded bupropion HCl 300 mg 24 hr tablet, 300 mg PO QAM 14 days #14 tabs 05/21/22 extended release escitalopram oxalate 20 mg tablet 20 mg PO DAILY 14 days #14 tabs 05/21/22 bupropion HCl 300 mg 24 hr tablet, 300 mg PO QAM #30 tabs 05/31/22 extended release escitalopram oxalate 20 mg tablet 20 mg PO DAILY #30 tabs 05/31/22 (Lexapro) Allergies Allergy/AdvReac Type Severity Reaction Status Date / Time No Known Allergies Allergy Verified 02/24/22 15:21 [No Known Allergies*] Review of Systems Review of Systems: Constitutional: No Fever, No Chills Cardiovascular: No Chest Pain, No SOB Respiratory: No Cough, No Sputum, Gastrointestinal: No Nausea, No Vomiting Neuro: No Weakness,No Headache Psych: + Anxiety/Panic, + Depression, No Si, No HI PMFSH Past Medical History Medical History Alcohol abuse Alcohol use disorder Family History Family History Mother Depression Father Testicular cancer Social History Social History Alcohol intake: never Patient Tobacco Use Status: Current everyday Tobacco user Cigarettes Per Day: 20 Years Smoked: 10 Advance Directives: No Advance Directives Information Provided: No Physical Exam ED Vital Signs: Vital Signs - 24 hr 05/31/22 10:40 Temperature 97 F Pulse Rate 76 Respiratory Rate 14 Blood Pressure 153/99 H Pulse Oximetry 97 Oxygen Delivery Method Room Air BMI result Body Mass Index 25.1 Appearance: Alert. Oriented X3. No acute distress. HEENT: normal inspection Respiratory: No respiratory distress. Speaks in complete sentences Skin: Skin warm and dry. Normal skin color. Normal skin turgor. No rashes. Extremities: normal inspection x4 Neuro: Oriented X 3. nonfocal Course Course Course Narrative: 27 yo male presenting for lexapro and wellbutrin refills. VSS and he appears well. he has appointment at the end of the month for refills. 1 month refill sent to the pharmacy. stable for d/c. Discharge Plan Discharge Clinical Impression: Depression Patient Disposition: Home, Self-Care Instructions: Depression (ED) Additional Instructions: Follow up with your doctor for refill. Prescriptions: New bupropion HCl 300 mg tablet extended release 24 hr 300 mg PO QAM Qty: 30 0RF escitalopram oxalate [Lexapro] 20 mg tablet 20 mg PO DAILY Qty: 30 0RF No Action bupropion HCl 300 mg tablet extended release 24 hr 300 mg PO QAM 14 Days Qty: 14 0RF escitalopram oxalate 20 mg tablet 20 mg PO DAILY 14 Days Qty: 14 0RF bupropion HCl 300 mg tablet extended release 24 hr 300 mg PO DAILY escitalopram oxalate 20 mg tablet 20 mg PO DAILY
== END 2022-05-31 11:33 | disposition home or self-care (01) ==
PROVIDERS: Emergency Provider Emergency Medicine Emergency Medical Services
DX: Z76.0 Encounter for issue of repeat prescription (principal); F17.210 Nicotine dependence, cigarettes, uncomplicated; Z71.6 Tobacco abuse counseling; Z79.899 Other long term (current) drug therapy
CPT/HCPCS: 99282

== ENCOUNTER 2024-03-10 08:08 | Emergency (ER) | payer OTHER, SELFPAY ==
--- NOTE | ~2024-03-10 | XR_ITS ---
EXAMINATION: XR KNEE, RIGHT CLINICAL INFORMATION: Right knee pain after injury. COMPARISON: None available. TECHNIQUE: Four views of the right knee. FINDINGS: On the lateral projection there is a 1.8 cm ossific density in the suprapatellar joint space with a large suprapatellar joint effusion. Alignment appears anatomic. XR/XR knee RT 4V IMPRESSION: 1.8 cm ossific density in the suprapatellar joint space with a large suprapatellar effusion. This may represent an avulsion fracture. The donor site is not clear. Electronically signed by: Mino Gillespie MD 03/10/2024 11:32 AM EDT
[2024-03-10 08:23] VITALS: BP 147/77; PULSE 78; RESP 16; TEMP 37; O2SAT 98; BMI 25.8
--- NOTE | 2024-03-10 09:09 | ED_ITS ---
HPI - General Adult General Chief complaint: Extremity Injury, Lower Stated complaint: R knee pain Time Seen by Provider: 03/10/24 09:08 Source: patient Mode of arrival: ambulatory Limitations: no limitations History of Present Illness ED Provider: Tatiana Mart PA-C HPI narrative: Patient is a 28 year old assigned male at with a history of alcohol abuse presenting to the emergency department today with right knee pain. Patient states that he was playing basketball last night when he felt and heard a pop in his right knee. Patient denies any dizziness, lightheadedness, abdominal pain, nausea, vomiting, fever, chills, blurry vision, double vision, loss of vision, chest pain, difficulty breathing, shortness of breath, back pain, night sweats, pain with urination, increased urinary frequency, increased urinary urgency, blood in his urine or stool, syncope or a near syncopal episode, bowel incontinence, bladder incontinence, or any other complaints at this time. Onset (ago): day(s) (1) Location: right and lower extremity Relieving factors: none Exacerbating factors: none Associated symptoms: denies other symptoms Treatments prior to arrival: none Related Data Home Medications ?Medication ?Instructions ?Recorded ?Confirmed escitalopram oxalate 20 mg tablet 20 mg PO DAILY 12/11/20 05/01/22 bupropion HCl 300 mg 24 hr tablet, 300 mg PO DAILY 05/01/22 05/01/22 extended release Previous Rx's ?Medication ?Instructions ?Recorded bupropion HCl 300 mg 24 hr tablet, 300 mg PO QAM 14 days #14 tabs 05/21/22 extended release escitalopram oxalate 20 mg tablet 20 mg PO DAILY 14 days #14 tabs 05/21/22 bupropion HCl 300 mg 24 hr tablet, 300 mg PO QAM #30 tabs 05/31/22 extended release escitalopram oxalate 20 mg tablet 20 mg PO DAILY #30 tabs 05/31/22 (Lexapro) Allergies Allergy/AdvReac Type Severity Reaction Status Date / Time No Known Allergies Allergy Verified 03/10/24 08:27 [No Known Allergies*] Review of Systems Constitutional: Constitutional: Reports no additional constitutional complaints, Denies chills, Denies fever(s) and Denies night sweats Eyes: Eyes: Reports no additional eye complaints, Denies blurry vision, Denies change in vision, Denies diplopia, Denies eye discharge, Denies loss of vision and Denies eye pain ENT: Denies dizziness Cardiovascular: Cardiovascular: Reports no additional cardiovascular complaints, Denies chest pain, Denies lightheadedness, Denies Loss of Consciousness and Denies dyspnea Respiratory: Respiratory: Reports no additional respiratory complaints and Denies dyspnea Gastrointestinal: Gastrointestinal: Reports no additional gastrointestinal complaints, Denies abdominal pain, Denies melena, Denies hematochezia, Denies change in bowel habits and Denies change in stool character Genitourinary: Genitourinary: Reports no additional male genitourinary complaints, Denies hematuria, Denies oliguria, Denies difficulty urinating, Denies dysuria, Denies urinary frequency, Denies urinary hesitancy, Denies urinary incontinence and Denies urinary urgency Musculoskeletal: Musculoskeletal: Reports no additional musculoskeletal complaints, Denies numbness and Denies tingling Comments: right knee pain Neurologic: Denies dizziness, Denies loss of vision, Denies numbness and Denies tingling Psychiatric: Psychiatric: Reports no additional psychiatric complaints Endocrine: Endocrine: Reports no additional endocrine complaints Hematologic/Lymphatic: Hematologic/Lymphatic: Reports no additional hematologic/lymphatic complaints Allergic/Immunologic: Allergic/Immunologic: Reports no additional allergic/immunologic complaints PMF Past Medical History Attestation statement: The following information was validated with the patient. Source: old records reviewed and nursing notes reviewed Medical History Alcohol abuse Alcohol use disorder Family History Family History Mother Depression Father Testicular cancer Social History Social History Unable to assess alcohol history related to: Unknown Alcohol intake: never Patient Tobacco Use Status: Current everyday Tobacco user Cigarettes Per Day: 20 Years Smoked: 10 Physical Exam ED Vital Signs: Vital Signs - 24 hr 03/10/24 08:23 03/10/24 10:00 03/10/24 11:29 Temperature 98.6 F 98.1 F 97.8 F Pulse Rate 78 75 75 Respiratory Rate 16 18 18 Blood Pressure 147/77 H 147/77 H Pulse Oximetry 98 95 95 Oxygen Delivery Method Room Air Room Air Room Air BMI result Body Mass Index 25.8 Const General: cooperative, no acute distress, alert and awake Nutritional Appearance: well nourished Orientation/consciousness: patient oriented x3 Limitations: no limitations HENMT Head: Yes normal to inspection and Yes atraumatic Ears: hearing grossly normal bilaterally and external ears normal General nose exam: Normal external nose present, no nasal discharge noted and no epistaxis Face and sinus: Yes normal facial exam, No abrasion and No laceration Mouth: Normal oral and palatal mucosa present, no drooling and no muffled voice Eyes General: appearance normal, both eyes and all related structures Periorbital: periorbital findings normal Eyelids: Yes eyelids normal Conjunctivae: conjunctivae normal Pupils: Equal, round and reactive pupils present EOM: EOMs intact bilaterally Neck Neck: Yes normal visual inspection, Yes full ROM and Yes no lymphadenopathy Chest Chest palpation & inspection: normal inspection of the chest Resp Effort & Inspection: normal respiratory effort and able to speak in complete sentences GI Inspection: Yes normal to inspection Neuro General: patient oriented x3 and moves all extremities Cranial nerves: Yes Equal, round and reactive pupils present Cognition (Neuro): normal cognition Extrem Other: minimal swelling present to the right knee Pain with all right knee ROM General: Yes capillary refill normal Psych Appearance: grossly normal Mental Status: mental status grossly normal Affect: normal affect Attitude: cooperative Thought process: Normal thought process present Thought content: Normal thought content present Insight: Good insight present (Psych) Procedures Orthopedic Splinting/Casting Injury #1: Side: right Lower Extremity Injury Location: knee Lower Extremity Immobilizer: knee immobilizer Other Orthopedic Equipment: crutches Medical Decision Making Medical Decision Making MDM Narrative: Patient is a 28 year old assigned male at with a history of alcohol abuse presenting to the emergency department today with right knee pain. Patient's physical exam was as noted in the physical exam portion of this note. Patient's right knee x-ray showed a 1.8cm ossific density in the suprapatellar joint space with a large suprapetllar effusion which may represent an avulsion fracture. I spoke to the orthopedic team who recommended placing the patient in a knee immobilizer with crutches and having him follow up with them on an outpatient basis. I explained my physical exam findings as well as all test results to the patient. I answered all questions asked by the patient. Patient's right knee was placed in an immobilizer, without incident. Patient's PMS above and below the immobilizer was intact prior to and after immobilizer placement. I stressed the importance of the patient taking his medication as directed (either prescribed or as the over the counter packaging recommends). I stressed the importance of the patient following up with his primary care provider and an orthopedic provider. I stressed the importance of the patient returning to the emergency department immediately if his symptoms were to worsen or if he were to develop any dizziness, shortness of breath, difficulty breathing, chest pain, blurry vision, loss of vision, nausea, vomiting, abdominal pain, fever, chills, back pain, or any other complaints. Patient verbalized agreement and understanding with this treatment plan and discharge. Differential Diagnosis Differential Diagnoses: The differential diagnosis associated with the presentation includes Knee pain Knee sprain ACL injury Quad injury Admission/Observation Consideration of admission/observation: Escalation of care including admission/observation considered Patient would have been admitted to the hospital had his work up had any findi ngs where hospital admission was appropriate and his clinical presentation warranted hospital admission. Consult Healthcare Provider Management of the patient was discussed with: Ditch Digger (spoke to the orthopedic team as noted in the MDM Rationale portion of this note.) Independent Interpretation I performed an independent interpretation of an: Plain X-Ray Interpretation: My interpretation is in agreement with the radiologist's impression of this im aging study. EXAMINATION: XR KNEE, RIGHT CLINICAL INFORMATION: Right knee pain after injury. COMPARISON: None available. TECHNIQUE: Four views of the right knee. FINDINGS: On the lateral projection there is a 1.8 cm ossific density in the suprapatellar joint space with a large suprapatellar joint effusion. Alignment appears anatomic. XR/XR knee RT 4V IMPRESSION: 1.8 cm ossific density in the suprapatellar joint space with a large suprapatellar effusion. This may represent an avulsion fracture. The donor site is not clear. Electronically signed by: Mino Gillespie MD 03/10/2024 11:32 AM EDT Dictated By: Stephanie Gillespie MD Signed By: Electronically signed by Stephanie Gillespie MD 03/10/24 7021 Radiology Impression Discussion of test interpretation with radiology: I have reviewed the radiologist's reading. Discharge Plan Discharge Clinical Impression: Knee sprain Patient Disposition: Home, Self-Care Instructions: Knee Sprain (DC), Crutch Instructions (ED) Additional Instructions: Follow up with your primary care provider and an orthopedic provider. Return to the emergency department immediately if your symptoms worsen or if you develop any dizziness, shortness of breath, difficulty breathing, chest pain, blurry vision, loss of vision, nausea, vomiting, abdominal pain, fever, chills, back pain, or any other complaints. Prescriptions: No Action bupropion HCl 300 mg tablet extended release 24 hr 300 mg PO QAM 14 Days Qty: 14 0RF escitalopram oxalate 20 mg tablet 20 mg PO DAILY 14 Days Qty: 14 0RF bupropion HCl 300 mg tablet extended release 24 hr 300 mg PO DAILY bupropion HCl 300 mg tablet extended release 24 hr 300 mg PO QAM Qty: 30 0RF escitalopram oxalate [Lexapro] 20 mg tablet 20 mg PO DAILY Qty: 30 0RF escitalopram oxalate 20 mg tablet 20 mg PO DAILY Referrals: [facility] [place] Medicine [Provider Group] (Call to establish and follow up with a primary care provider. If you already have a primary care provider, please follow up with them.) [facility] [place] Primary Care, [facility] [Provider Group] (Call to establish and follow up with a primary care provider. If you already have a primary care provider, please follow up with them.) [facility] [place] Primary Care,[facility] [Provider Group] (Call to establish and follow up with a primary care provider. If you already have a primary care provider, please follow up with them.) [facility] [place] [facility] Surgeons [Provider Group] (Call to establish and follow up with an orthopedic provider. ) Stand Alone Forms: Work/School Release Interventions: ED Discharge Assessment Last Done: 03/10/24 11:29 Discharge Date/Time: 03/10/24 11:30 Print Language: Bermudian
[2024-03-10 10:00] VITALS: PULSE 75; RESP 18; TEMP 36.7; O2SAT 95
[2024-03-10 11:29] VITALS: BP 147/77; PULSE 75; RESP 18; TEMP 36.6; O2SAT 95
== END 2024-03-10 11:30 | disposition home or self-care (01) ==
PROVIDERS: Emergency Provider Emergency Medicine
DX: S83.91XA Sprain of unspecified site of right knee, initial encounter (principal); M25.561 Pain in right knee; Y93.67 Activity, basketball; Y92.310 Basketball court as the place of occurrence of the external cause; Y99.8 Other external cause status; Z79.899 Other long term (current) drug therapy
CPT/HCPCS: 29505; 73564; 99283; 99284

== ENCOUNTER 2024-03-20 13:42 | Outpatient (AMB) | payer OTHER, SELFPAY ==
--- NOTE | 2024-03-20 13:44 | A.OFFVIS_ITS ---
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 Patient reports one day about 2 years ago he was running around the yard with his dog, he jumped and when he landed his knee popped out of place. He was able to ambulate after injury except felt instability and could not flex and extend. HE expresses this is the 5th time his knee has gone out of place, Patient reports he was playing basketball 2 weeks ago when he came to a sudden stop and his knee popped again. HE expresses this is jis 5th time this has happened, he steps on the foot wrong and he feels as if two tendons are snapping in the right knee. Patient expresses he has been having these episodes since his first initial injury. Patient reports difficulty with ambulation, flexion and extension and is wearing a knee brace for stability which he says this helps. He is wearing a brace provided to him by the ED. He would like to get a new brace that is not so bulky. He is also requesting an MRI of the knee since his concerns. Denies past treatment to knee, numbness, and tingling. Allergies No Known Allergies [No Known Allergies*] Allergy (Verified 03/20/24 13:46) HPI HPI SERVICE DELIVERY CONSULTANT-Right knee pain: Details: Patient is a 29-year-old male who presents for evaluation of right knee pain. The patient states that this pain started approximately 2 years ago, when he was playing in the [place], and attempted to stop while running. At this time, the patient reports that he immediately began to experience significant discomfort in the right knee, stating that he felt that something ?popped or tore?. The patient states that approximately 4 or 5 times over the last 2 years, he has felt a similar sensation, accompanied by feelings of instability in the right knee and feeling as if the knee is going to ?give out?. Patient also states that when he puts any weight on his right knee while he is bending his knee, he feels that the knee is very unstable and may give out. The patient reports that at most previous incident, he did present to the emergency department, where he was placed into a knee immobilizer until follow-up. Today, the patient reports that his pain has improved, but he is still experiencing feelings of instability, particularly when he goes up and down stairs. [facility] Medical History Alcohol abuse Alcohol use disorder Family History Mother Depression Father Testicular cancer Social History (Updated 03/20/24 @ 13:49 by ALICIA Richardson) Alcohol intake: current Alcohol intake frequency: 3 or more drinks per day Patient Tobacco Use Status: Current everyday Tobacco user Tobacco use type: Cigarette Cigarettes Per Day: 20 Years Smoked: 10 service: No Current occupational status: employed Current occupation: [employer] Review of Systems Const All systems reviewed & are unremarkable except as noted in HPI and below Physical Exam Vital Signs: BMI result Body Mass Index 25.1 Extrem Other: On inspection, there is no visible deformity of the right knee No edema, erythema, ecchymosis noted No lacerations, abrasions, open areas No evidence of infection Patient reports no tenderness to palpation in the patella, parapatellar region, medial and lateral joint line, posterior knee Patient is able to extend the left knee to 0 degrees and flex to approximately 100-110 degrees without difficulty No ligamentous laxity noted Distal sensation intact Capillary refill brisk Positive medial López's Results Reviewed Results Reviewed: X-rays obtained in the office today and independently reviewed by me, Aden Serna PA-C, demonstrate no fracture or acute bony abnormality. Assessment & Plan Assessment & Plan (1) Internal derangement of right knee: Code(s): M23.91 - Unspecified internal derangement of right knee Category: Medical Plan 1. Internal derangement of right knee Due to patient's history and physical exam findings my suspicion for meniscal injury in the right knee is very high MRI of patient's right knee ordered today to assess the soft tissue structures of the right knee PT also ordered to help with range of motion, strengthening, stabilization of the right knee while awaiting MRI Patient was amenable to this plan Patient was advised on the importance of rest, ice, elevation, and other conservative pain management measures meantime Patient is also educated on the importance of activity modification Patient understands this Patient will follow-up after MRI for results review and discussion of further treatment options if indicated, sooner with any acute concerns Orders: Orders MR knee RT wo con Today M17.11 - Unilateral primary osteoarthritis, right knee, M23.91 - Unspecified internal derangement of right knee PT Evaluation and Treatment Today M23.91 - Unspecified internal derangement of right knee Coding Level of Care Code New Pt Level 3 (22392) Diagnoses Internal derangement of right knee M23.91
[2024-03-20 13:46] VITALS: BMI 25.1
== END 2024-03-20 14:50 | disposition home or self-care (01) ==
DX: M23.91 Unspecified internal derangement of right knee (principal)
CPT/HCPCS: 99203

== ENCOUNTER 2024-03-20 13:51 | Outpatient (REF) | payer OTHER, SELFPAY ==
--- NOTE | ~2024-03-20 | XR_ITS ---
EXAMINATION: XR RIGHT KNEE 2 VIEWS CLINICAL INFORMATION: Unilateral primary osteoarthritis, right knee M17.11. COMPARISON: XR Right knee 03/10/2024 TECHNIQUE: Two views of the right knee. FINDINGS: No acute fracture or dislocation. No joint space narrowing and marginal osteophytes. No osseous erosion. Small joint effusion. No abnormal soft tissue calcification. XR/XR knee RT 2V IMPRESSION: No acute osseous abnormality. Small joint effusion. Electronically signed by: Maurice Rushing MD 05/31/2024 09:52 AM EST
== END 2024-03-20 13:52 | disposition home or self-care (01) ==
LOC: HO.HOSX 13:51
DX: M17.11 Unilateral primary osteoarthritis, right knee (principal); M23.91 Unspecified internal derangement of right knee
CPT/HCPCS: 73560

== ENCOUNTER 2024-04-12 16:14 | Outpatient (REF) | payer OTHER, SELFPAY ==
--- NOTE | ~2024-04-12 | MR_ITS ---
EXAMINATION: MR KNEE WITHOUT CONTRAST, RIGHT CLINICAL INFORMATION: Concern for meniscal injury. Patient reports pain medially. COMPARISON: X-rays of the right knee February 2024. TECHNIQUE: MRI of the knee without contrast was performed using routine sequences on a high-field scanner. FINDINGS: MENISCI: Medial Meniscus: There is increased signal along the periphery of the meniscus likely reflecting a peripheral tear extending to the femoral articular surface or a meniscal capsular separation. Lateral Meniscus: Intact LIGAMENTS: Cruciate: ACL: There is a tear of the anterior cruciate ligament which appears likely chronic or subacute and likely complete. PCL: Intact. Collateral: Intact. EXTENSOR MECHANISM: Intact. ARTICULAR CARTILAGE/BONE: Patellofemoral Compartment: Focal cartilage heterogeneity along the distal lateral facet of the patella indicative of focal arthrosis. Trochlear cartilage normal. Medial Compartment: There is subchondral bone marrow edema along the peripheral margin of the medial plateau having the appearance of bone contusion. Articular cartilage is intact. Lateral Compartment: There is a focal area of osteochondral depression on the sulcus terminalis of the femur extending over approximately 1 cm AP and transverse. This has the appearance of an old osteochondral impaction fracture. Articular cartilage appears intact. JOINT FLUID AND BURSAE: Trace joint effusion. MR/MR knee RT wo con IMPRESSION: 1. Tear of the anterior cruciate ligament which appears subacute or chronic and likely complete. 2. Bone contusion of the medial plateau. 3. Old osteochondral impaction fracture of the sulcus terminalis of the lateral femur. This appears old. No surrounding edema. Overlying articular cartilage appears intact. 4. Mild arthrosis of the patellofemoral compartment. 5. Small joint effusion. I do not see a loose body that appears present on the x-ray of 03/10/2024 but not visualized on the x-ray of 03/20/2020. 6. Peripheral tear of the medial meniscus versus meniscal capsular separation. Electronically signed by: Peyman Little MD 04/24/2024 07:25 AM EST
== END 2024-04-12 16:15 | disposition home or self-care (01) ==
LOC: HO.MRI 16:14
DX: M17.11 Unilateral primary osteoarthritis, right knee (principal); M23.91 Unspecified internal derangement of right knee
CPT/HCPCS: 73721

== ENCOUNTER 2024-05-05 14:05 | Outpatient (AMB) | payer OTHER, SELFPAY ==
[2024-05-05 14:08] VITALS: BMI 27.1
--- NOTE | 2024-05-05 14:08 | A.OFFVIS_ITS ---
Vital Signs 05/05/24 14:08 Height 6 ft Weight 200 lb BMI 27.1 Intake Visit Reasons: OV-Right knee MRI review Intake Note: Michael is a 29 year old male who presents today for an MRI review of his right knee. Patient reports he was playing basketball and re-injured his right knee. Allergies No Known Allergies [No Known Allergies*] Allergy (Verified 05/05/24 14:08) HPI HPI OV-Right knee MRI review: Details: Patient is a 29-year-old male who presents for right knee MRI review. The patient states that he did re-injure his knee since previous evaluation while playing basketball again, and he feels he has had this feeling of ?instability? and ?popping in and out? several times since previous evaluation. Patient states he is not aware of what his MRI findings were. No other acute complaints or concerns at this time. [facility] Medical History Alcohol abuse Alcohol use disorder Family History Mother Depression Father Testicular cancer Social History Alcohol intake: current Alcohol intake frequency: 3 or more drinks per day Patient Tobacco Use Status: Current everyday Tobacco user Tobacco use type: Cigarette Cigarettes Per Day: 20 Years Smoked: 10 service: No Current occupational status: employed Current occupation: [employer] Review of Systems Const All systems reviewed & are unremarkable except as noted in HPI and below Physical Exam Vital Signs: BMI result Body Mass Index 27.1 Extrem Other: On inspection, there is no visible deformity of the right knee No edema, erythema, ecchymosis noted No lacerations, abrasions, open areas No evidence of infection Patient reports no tenderness to palpation in the patella, parapatellar region, medial and lateral joint line, posterior knee Patient is able to extend the left knee to 0 degrees and flex to approximately 100-110 degrees without difficulty No ligamentous laxity noted Distal sensation intact Capillary refill brisk Positive medial López's Results Reviewed Results Reviewed: MRI of right knee: IMPRESSION: 1. Tear of the anterior cruciate ligament which appears subacute or chronic and likely complete. 2. Bone contusion of the medial plateau. 3. Old osteochondral impaction fracture of the sulcus terminalis of the lateral femur. This appears old. No surrounding edema. Overlying articular cartilage appears intact. 4. Mild arthrosis of the patellofemoral compartment. 5. Small joint effusion. I do not see a loose body that appears present on the x-ray of 03/10/2024 but not visualized on the x-ray of 03/20/2020. 6. Peripheral tear of the medial meniscus versus meniscal capsular separation. 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 Old ACL tear of right knee Date of original injury approximately 2 years ago, repeat injuries throughout this timeframe, most recent on 04/30/2024 Patient is discussed with Dr. Mcdaniel, who was available to see the patient with the clinic today, and a collaborative trigger plan was formed: At this time, the patient is informed that his MRI findings are consistent with an old ACL tear Patient is advised that the mainstay of treatment for this is ACL reconstruction, however he will need to go to physical therapy and get full range of motion of his right knee back prior to any surgical intervention Patient was amenable to this plan PT order is placed today for range of motion training of the right knee Patient will call for follow-up appointment when he has full range of motion of his right knee to discuss surgical intervention with Dr. 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
== END 2024-05-05 14:42 | disposition home or self-care (01) ==
PROVIDERS: PCP Family Medicine
DX: M23.51 Chronic instability of knee, right knee (principal)
CPT/HCPCS: 99213

== ENCOUNTER 2024-05-22 07:00 | Outpatient (RCR) | payer OTHER, SELFPAY ==
--- NOTE | 2024-04-05 14:44 | MHC.PT.EP ---
[facility] [place] [facility] [place] [facility] [place] [facility] [address] [phone] F: [phone] F: [phone] F: [phone] F: [phone] Physical Therapy Plan of Care Date of Evaluation: 04/05/24 Date of Surgery: Diagnosis: R knee pain Assessment: Patient is a 29 year old R handed male who presents with s/s consistent with right knee pain. He works with daily job demands including walking, squatting, bending and landscaping. Patient past medical history includes alcohol abuse. Current impairments include pain, posture, ROM, strength, activity tolerance and functional mobility. Functional limitations include decreased ability to squat, walk, negotiate stairs, bend, kneel and lift. Patient is motivated with good rehab potential. Skilled PT will address impairments and functional limitations in order to achieve goals. 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 Manual therapy to restore motion and function. Therapeutic exercise to improve strength and flexibility. Neuromuscular re-education for posture and balance. Therapeutic activities to return to functional activities of daily living. Electronically signed by: Alexey Jones PT Please sign and return to therapist. Thank you for your referral.
--- NOTE | 2024-07-19 09:21 | MHC.PT.DC ---
[facility] [place] Office [place] [facility] [place] Office [address] Vipin Stephenson [address] [phone] F: [phone] F: [phone] F: [phone] F: [phone] Physical Therapy Discharge Report Diagnosis: R knee pain Date of Surgery: Date of Evaluation: 04/05/24 Date of Discharge: 06/04/24 Treatments to Date: 5 Cancellations to Date: No Shows to Date: Discharge Status: Independent with HEP Discharge Summary: Pt elected to hold PT until surgery schedule in June 2024. 05/22/24: flexion to 132. Ext full. continued with current program. 1 more visit then follow up with MD. 05/16/24: pt progressing well with skilled PT. no adverse reactions. ROM improving. flexion to 128. extension near full. to schedule ACL recon soon. 05/05/24: pt with increased swelling and reduced ROM resulting from incident during basketball. MRI reviewed and ACL tear present among other pathology. educated him on the functional meaning of this. 04/19/24: pt progressing with skilled PT. improved activity tolerance and strength. MRI done 1 week ago. awaiting results. 04/12/24: pt progressing well with skilled PT. added shuttle with no adverse reactions. Patient is a 29 year old R handed male who presents with s/s consistent with right knee pain. He works with daily job demands including walking, squatting, bending and landscaping. Patient past medical history includes alcohol abuse. Current impairments include pain, posture, ROM, strength, activity tolerance and functional mobility. Functional limitations include decreased ability to squat, walk, negotiate stairs, bend, kneel and lift. Patient is motivated with good rehab potential. Skilled PT will address impairments and functional limitations in order to achieve goals. Electronically signed by: Alexey Jones, PT Please sign and return to therapist. Thank you for your referral.
== END 2024-07-19 09:21 | disposition home or self-care (01) ==
LOC: HO.PTCHIC 07:00
PROVIDERS: PCP Family Medicine
DX: M23.91 Unspecified internal derangement of right knee (principal)
CPT/HCPCS: 97110; 97162

== ENCOUNTER 2024-06-08 14:05 | Outpatient (AMB) | payer OTHER, SELFPAY ==
[2024-06-08 14:57] VITALS: BMI 27.1
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
== END 2024-06-08 16:12 | disposition home or self-care (01) ==
PROVIDERS: PCP Family Medicine; Visit Provider Orthopaedic Surgery
DX: S83.519A Sprain of anterior cruciate ligament of unspecified knee, initial encounter (principal)
CPT/HCPCS: 99214

== ENCOUNTER → 2024-06-08 14:05 | Outpatient (BNVA) | payer OTHER, SELFPAY | PROVIDERS: PCP Family Medicine; Visit Provider Orthopaedic Surgery ==

== ENCOUNTER 2024-06-29 10:57 | Outpatient (AMB) | payer OTHER, SELFPAY ==
--- NOTE | 2024-06-29 11:01 | MHC.OFFVIS ---
Vital Signs 06/29/24 11:03 Height 6 ft Weight 200 lb BMI 27.1 Handedness Left Intake Visit Reasons: Preop RT ACL reconstruction 07/05/24 NE Intake Note: Michael is a 29 year old male who presents today for a pre op appointment for his right knee ACL reconstruction 07/05/24 NE. Allergies No Known Allergies [No Known Allergies*] Allergy (Verified 06/29/24 11:02) HPI HPI Preop RT ACL reconstruction 07/05/24 NE: Details: Mr. Kaba is a 29 year-old?male?who presents in the office today for?his?preoperative history and physical exam prior to a?right knee ACL reconstruction?to be performed on?07/05/2024?by?Dr. Mcdaniel.?? - Patient has an allergy history, as follows:?NKDA??? -??Patient has a medical history, as follows:??Anxiety, HTN -??Patient has a surgical history, as follows:? No surgical history -??Patient has a social history, as follows:??Smokes half pack per day, smokes occasional marijuana, drinks alcohol 1 time a week. ? PFSH Medical History Alcohol abuse Alcohol use disorder Family History Mother Depression Father Testicular cancer Social History Alcohol intake: current Alcohol intake frequency: 3 or more drinks per day Patient Tobacco Use Status: Current everyday Tobacco user Tobacco use type: Cigarette Cigarettes Per Day: 20 Years Smoked: 10 service: No Current occupational status: employed Current occupation: [employer] Review of Systems Const All systems reviewed & are unremarkable except as noted in HPI and below Physical Exam Vital Signs: BMI result Body Mass Index 27.1 Const General: cooperative, healthy appearing, comfortable, no acute distress, well developed, alert and awake Orientation/consciousness: patient oriented x3 HEENT Head: Yes normal to inspection, Yes normocephalic and Yes atraumatic Eyes General: appearance normal, both eyes and all related structures Neck Neck: Yes normal visual inspection and Yes no lymphadenopathy Resp Effort & Inspection: normal respiratory effort and able to speak in complete sentences Cardio Rate: regular rate Peripheral pulses: Peripheral pulses 2+ throughout GI Inspection: Yes normal to inspection Palpation (GI): Soft to palpation Skin General skin exam: no rashes or lesions noted Neuro General: patient oriented x3 Extrem Other: Tenderness to palpation medial compartment and medial joint line pain. Positive medial López's. To apprehensive for pivot shift but 1+ Ismael's and anterior drawer that is significantly more lax than the contralateral side. Psych Mental Status: mental status grossly normal Assessment & Plan Assessment & Plan (1) Internal derangement of right knee: Code(s): M23.91 - Unspecified internal derangement of right knee Category: Medical (2) Anterior cruciate ligament complete tear: Code(s): S83.519A - Sprain of anterior cruciate ligament of unspecified knee, initial encounter Category: Medical Plan Mr. Kaba is a 29 year-old?male?who presents in the office today for?his?preoperative history and physical exam prior to a?right knee ACL reconstruction?to be performed on?07/05/2024?by?Dr. Mcdaniel.?? - Patient has an allergy history, as follows:?NKDA??? -??Patient has a medical history, as follows:??Anxiety, HTN -??Patient has a surgical history, as follows:? No surgical history -??Patient has a social history, as follows:??Smokes half pack per day, smokes occasional marijuana, drinks alcohol 1 time a week. I discussed in detail the procedure and what to expect pre and post operatively. We discussed the risks, benefits and alternatives to the surgery as well as the rehabilitation course. The risks; which include, but are not limited to infection, bleeding, nerve injury, ongoing pain, swelling, and stiffness, perioperative risk of injury to bones and soft tissues, and blood clots. Post operative medications were sent to the pharmacy,?oxycodone 5 mg PO Q4-6H PRN, quantity 42 tabs for 7 days and morphine ER 15 mg (MS Contin) PO Q12H PRN, quantity 6 tabs for 3 days,?while in the office today. The patient was instructed that?he?should obtain the prescription prior to surgery but should not consume until after the procedure; as these should only be taken for postoperative pain management. Should the patient take these medications before surgery, a refill will not be sent to the pharmacy until their scheduled refill date.?? Patient was also fit for an ACL brace off the shelf while in the office today. I?ve answered all questions and with their understanding they have consented to move forward with right knee ACL reconstruction with Dr. Mcdaniel. Follow-up will be at the post operative appointment on 07/13/2024, or sooner if needed.? Medications: New morphine ER (MS Contin) Partial Fill upon patient request. 15 mg PO Q12H 3 days 6 tabs 0RF oxycodone Partial Fill upon patient request. 5 mg PO Q4-6H 7 days PRN 42 tabs 0RF pain acetaminophen 325 mg PO Q4-6H 30 days PRN 160 tabs 0RF pain Coding Level of Care Code Global (64959) Diagnoses Internal derangement of right knee M23.91 Anterior cruciate ligament complete tear S83.519A
[2024-06-29 11:03] VITALS: BMI 27.1
== END 2024-06-29 11:40 | disposition home or self-care (01) ==
PROVIDERS: PCP Family Medicine; Visit Provider Physician Assistant
DX: M23.91 Unspecified internal derangement of right knee (principal); S83.519A Sprain of anterior cruciate ligament of unspecified knee, initial encounter
CPT/HCPCS: 99024

== ENCOUNTER 2024-07-05 06:56 | Day surgery (SDC) | payer OTHER, SELFPAY ==
[2024-07-03 11:59] VITALS: BMI 27.1
[2024-07-03 12:29] VITALS: BMI 26.4
--- NOTE | 2024-07-03 15:27 | HO.ANESPROP2 ---
HPI - Anesthesia Eval Consult details Narrative: 29yo M for Rght ACL Allograft Hx ETOH abuse PMFSH Active Problems Active Problems: All Active Problems (Updated 06/09/24 @ 10:00 by Oliver Mcdaniel MD) Anterior cruciate ligament complete tear (Acute) Old complete tear of anterior cruciate ligament of right knee (Acute) Internal derangement of right knee (Acute) Alcohol abuse (Acute) Alcohol use disorder (Acute) Past Medical History Medical History Alcohol abuse Alcohol use disorder Family History Family History Mother Depression Father Testicular cancer Social History Social History (Updated 07/03/24 @ 12:31 by Vandana Grubbs RN) Household Members: None Housing: [facility] Are you a primary career development coordinator/teacher to a significant other at home: No Do you presently have visiting nurse or other home services: No 75 years or older and lives alone: No Alcohol intake: current Alcohol intake frequency: former alcohol drinker Patient Tobacco Use Status: Current everyday Tobacco user Tobacco use type: Cigarette Cigarettes Per Day: 20 Years Smoked: 10 Use of substances other than those prescribed or required for medical reasons: Yes Substance Use Type: Marijuana Substance Use Frequency: Occasionally service: No Current occupational status: employed Current occupation: [employer] / [employer] Allergies Allergy/AdvReac Type Severity Reaction Status Date / Time No Known Allergies Allergy Verified 07/03/24 12:25 [No Known Allergies*] Home Medications ?Medication ?Instructions ?Recorded ?Confirmed ?Last Taken ?Type bupropion HCl 300 mg 24 hr tablet, 300 mg PO DAILY 05/01/22 07/03/24 05/01/22 History extended release aripiprazole 2 mg tablet 2 mg PO DAILY 03/20/24 07/03/24 Unknown History lisinopril 10 mg tablet 10 mg PO DAILY 03/20/24 07/03/24 Unknown History sertraline 100 mg tablet 150 mg PO DAILY 03/20/24 07/03/24 Unknown History Exam Height,Weight and Vital Signs: Height 6 ft Weight 88.451 kg Assessment and Plan Assessment Anesthesia Assessment: Chart Reviewed
[2024-07-05 07:18] VITALS: BP 138/81; PULSE 61; RESP 16; TEMP 36.4; O2SAT 97; BMI 26.9
[2024-07-05] MEDS: Lactated Ringers 1,000 ML 100 ML IVCONT (07:41)
--- NOTE | 2024-07-05 09:44 | MHC.SHP ---
Pre-Procedural Eval Section A - 24 Hr Update-Section A only Date of Service: 07/05/24 The patient is an INPATIENT: No Changes since office visit: No Cold of Flu in the past 2 weeks, No New Medical Problems, No Changes in Medication and No Patient answered all questions The patient has been examined within 24 hours of the surgical procedure. The History & Physical has been completed within 30 days and I have reviewed it.: Yes Section B - Complete if H&P > 30 days Chief Complaint: Sprain of anterior cruciate ligament of right knee Allergies: Allergies Allergy/AdvReac Type Severity Reaction Status Date / Time No Known Allergies Allergy Verified 07/03/24 12:25 [No Known Allergies*] Plan I have reviewed the history and physical and performed a pertinent physical examination on my patient. No changes have occurred unless specified. Time Spent With Patient Time: Total time managing care of this patient today ____ minutes.
--- NOTE | 2024-07-05 11:15 | PM.OP ---
Brief Operative Note Date of Service: 07/05/24 Pre-op diagnosis: right knee ACL rupture Post-op diagnosis: same Procedure: Right ACL reconstruction with allograft Implants: Granados and Nephew ACL endobutton, Tibialis anterior allograft, 11x 25 PEEK interference screw Surgeon: Oliver Mcdaniel MD Anesthesia: GETA and regional Was an Privacy Manager used for this Procedure?: Yes Privacy Manager: Nancy Lloyd Estimated blood loss (mL): 20 Tourniquet time (min): 45 IV fluids (mL): 800 Pathology: none sent Condition: stable Disposition: PACU
--- NOTE | 2024-07-05 11:24 | P.OP_ITS ---
Operative Note Operative Note Date of Service: 07/05/24 Narrative: Date of Service: 07/05/24 Pre-op diagnosis: right knee ACL rupture Post-op diagnosis: same Procedure: Right ACL reconstruction with allograft Implants: Granados and Nephew ACL endobutton, Tibialis anterior allograft, 11x 25 PEEK interference screw Surgeon: Oliver Mcdaniel MD Anesthesia: GETA and regional Was an Sandblaster Paint Sprayer used for this Procedure?: Yes Sandblaster Paint Sprayer: Nancy Lloyd Estimated blood loss (mL): 20 Tourniquet time (min): 45 IV fluids (mL): 800 Pathology: none sent Condition: stable Disposition: PACU Procedure in detail: Patient was brought to the operating room placed supine on the arthroscopic table and prepped and draped in standard sterile fashion. A time-out was called to identify proper site proper procedure proper surgeon and IV antibiotics per weight were administered. Under anesthesia he had a + pivot shift. I began by exsanguinating the limb and insufflating tourniquet to 300 mm Hg. Then made a standard anterolateral stab incision. The knee was insufflated with water and 30 degree arthroscope was placed. There was grade 0 fibrillations of the patella but overall suprapatellar pouch and the gutters were clean. I descended into the medial compartment where I made my far medial portal under direct visualization. There was a normal medial meniscus tear in the red/white zone. The root was intact and there were no cartilage changes of the MFC. I then examined the notch where there was a + empty wall sign and an intact PCL. I debrided the stump and acl footprint and performed a limited notchplasty. I then, through a far AM portal and a 7mm behind the back guide, drilled a k-wire through the LFC with the knee in hyper-flexion. I measured the tunnel as a 35 and then after sizing the allograft on the back table drilled a 28 mm tunnel with an 11 mm reamer. The final 7 mm was drilled with a 4.5 reamer. I then pulled a suture through the femoral tunnel and turned my attention to the tibia. I did examine the femoral tunnel and was satisfied with the posterior wall and its location low and medial at the anatomic footprint. I placed my tibial drill guide in 55 deg and, through a anteromedial inc just lateral to the tibial tubercle placed a k-wire into the notch exiting just medial to the anterior horn insertion of the lateral meniscus. I then over-reamed with an 11 reamer. I cleaned the tunnels up with a shaver. On the back table I whip-stitched the allograft to fit through an 11 aperture and attached the femoral button to the looped end. I placed the graft on 15lbs of tension for 10 minutes. I then passed the allograft through the tibial tunnel and femoral tunnel and flipped the button. I cycled the knee about 10-15 cycles and then placed a tibial interference screw with the knee in hyper-extension while holding the graft taught. Once I was satisfied that the interference screw was buried I examined the ACL. The ACL was not stable and there was a negative pivot shift. I then removed all instrumentation and closed the incisions with nylon. Patient was then placed in sterile dressings and a hinged knee brace. She was then extubated brought recovery room stable condition. There were no known complications.
[2024-07-05 11:33] VITALS: BP 136/66; PULSE 96; RESP 18; TEMP 36.6; O2SAT 98
[2024-07-05 11:35] VITALS: BP 134/72; PULSE 93; RESP 18; O2SAT 98
[2024-07-05 11:40] VITALS: BP 152/87; PULSE 96; RESP 18; O2SAT 98
[2024-07-05 11:45] VITALS: BP 145/97; PULSE 97; RESP 18; O2SAT 98
[2024-07-05 11:50] VITALS: BP 142/88; PULSE 98; RESP 18; TEMP 36.6; O2SAT 98
--- NOTE | 2024-07-05 12:24 | PC.NURSE ---
PRESCRIPTION PRE GIVEN TO PATIENT
== END 2024-07-05 12:48 | disposition home or self-care (01) ==
LOC: HO.SSS 06:57
PROVIDERS: Visit Provider Orthopaedic Surgery
PROC: (CPT 27428; principal; 2024-07-05 10:00)
DX: S83.511A Sprain of anterior cruciate ligament of right knee, initial encounter (principal); X58.XXXA Exposure to other specified factors, initial encounter; Y93.9 Activity, unspecified; Y92.9 Unspecified place or not applicable; Y99.9 Unspecified external cause status; M23.91 Unspecified internal derangement of right knee; I10 Essential (primary) hypertension; F41.9 Anxiety disorder, unspecified; F10.10 Alcohol abuse, uncomplicated; F17.210 Nicotine dependence, cigarettes, uncomplicated; Z79.899 Other long term (current) drug therapy
CPT/HCPCS: 29888; C1713; C1762; J0131; J0171; J0665; J0690; J1100; J2003; J2250; J2405; J2704; J3010

== ENCOUNTER → 2024-07-05 06:56 | Outpatient (BNV) | payer OTHER, SELFPAY | PROVIDERS: Visit Provider Orthopaedic Surgery | DX: S83.511A Sprain of anterior cruciate ligament of right knee, initial encounter (principal) | CPT/HCPCS: 29888 ==

== ENCOUNTER 2024-07-13 11:26 | Outpatient (REF) | payer OTHER, SELFPAY ==
--- NOTE | ~2024-07-13 | XR_ITS ---
CLINICAL HISTORY: M25.569 - Pain in unspecified knee 1 view right knee Comparison: None Findings: Bones intact. No dislocations. Opaque material possibly related to previous ACL repair noted. No significant arthritic change or erosions. No joint effusion. No other radiopaque foreign body. IMPRESSION: 1. No acute findings. This document has been electronically signed by: Zeus Sanchez MD on 07/15/2024 08:01:56
== END 2024-07-13 11:27 | disposition home or self-care (01) ==
LOC: HO.HOSX 11:26
PROVIDERS: Visit Provider Physician Assistant
DX: M25.561 Pain in right knee (principal)
CPT/HCPCS: 73560

== ENCOUNTER 2024-07-13 12:56 | Outpatient (AMB) | payer OTHER, SELFPAY ==
[2024-07-13 13:13] VITALS: BMI 26.9
--- NOTE | 2024-07-13 13:13 | A.OFFVIS_ITS ---
Vital Signs 07/13/24 13:13 Height 6 ft Weight 198 lb BMI 26.9 Intake Visit Reasons: PO RT ACL reconstruction 07/05/24 NE Intake Note: Michael is a 29 year old male who presents today for a post op appointment s/p right ACL reconstruction w/ allograft 07/05/24 NE. Patient reports he is doing great. He is occasionally using crutches to aid with ambulation. He is not taking anything for pain at this time. Allergies No Known Allergies [No Known Allergies*] Allergy (Verified 07/13/24 13:14) HPI HPI PO RT ACL reconstruction 07/05/24 NE: Details: Patient presents to the office today status post right knee ACL reconstruction on 07/05/[address] Mcdaniel. He presents using the brace and using crutches to assist with ambulation. He has a 1st physical therapy appointment tomorrow. [facility] Medical History Alcohol abuse Alcohol use disorder Family History Mother Depression Father Testicular cancer Social History (Updated 07/03/24 @ 12:31 by Vandana Grubbs RN) Household Members: None Housing: Condominium Are you a primary healthcare insurance sales agent to a significant other at home: No Do you presently have visiting nurse or other home services: No 75 years or older and lives alone: No Alcohol intake: current Alcohol intake frequency: former alcohol drinker Patient Tobacco Use Status: Current everyday Tobacco user Tobacco use type: Cigarette Cigarettes Per Day: 20 Years Smoked: 10 Substance Use Type: Marijuana service: No Current occupational status: employed Current occupation: [employer] / [employer] Review of Systems Const All systems reviewed & are unremarkable except as noted in HPI and below Physical Exam Vital Signs: BMI result Body Mass Index 26.9 Const General: cooperative, healthy appearing and no acute distress Resp Effort & Inspection: normal respiratory effort and able to speak in complete sentences Cardio Rate: regular rate Peripheral pulses: Peripheral pulses 2+ throughout Skin Lesions: no lesions Rashes: no rashes Extrem Other: Right knee incision sites are clean dry and intact. Sutures intact. No surrou nding erythema or drainage. No signs of infection. NVI. Assessment & Plan Assessment & Plan (1) Status post reconstruction of anterior cruciate ligament: Code(s): Z98.890 - Other specified postprocedural states Category: Surgical Plan Patient presents to the office today status post right knee ACL reconstruction on 07/05/[address] Mcdaniel. He presents using the brace and using crutches to assist with ambulation. He has a 1st physical therapy appointment tomorrow. Sutures are removed. Steri-Strips applied. Patient was placed back into the brace. He will remain in the brace for roughly 6 weeks until quad control allows. He is 1st physical therapy appointment as tomorrow and he will follow up in 4 weeks, sooner if needed with Dr. Mcdaniel. X-rays of the right knee obtained in the office today reveal intact Endobutton with proper placement. Orders: Orders XR knee RT 1V Today M25.569 - Pain in unspecified knee Coding Level of Care Code Global (28900) Diagnoses Status post reconstruction of anterior cruciate ligament Z98.890
== END 2024-07-13 14:48 | disposition home or self-care (01) ==
PROVIDERS: PCP Family Medicine; Visit Provider Physician Assistant
DX: Z98.890 Other specified postprocedural states (principal)
CPT/HCPCS: 99024

== ENCOUNTER → 2024-07-13 13:03 | Outpatient (BNV) | payer OTHER, SELFPAY | PROVIDERS: Visit Provider Specialist | DX: M25.561 Pain in right knee (principal) | CPT/HCPCS: 73560 ==

== ENCOUNTER 2024-08-17 10:36 | Outpatient (REF) | payer OTHER, SELFPAY ==
--- NOTE | ~2024-08-17 | XR_ITS ---
CLINICAL HISTORY: Z98.890 - Other specified postprocedural states 2 view right knee Comparison: 07/13/2024 Findings: Bones intact. No dislocations. Surgical hardware related to ACL repair noted. No significant loss of joint space, osteophytes, or erosions. No joint effusion. No other radiopaque foreign body. IMPRESSION: 1. No acute findings. This document has been electronically signed by: Zeus Sanchez MD on 08/17/2024 18:50:40
== END 2024-08-17 10:37 | disposition home or self-care (01) ==
LOC: HO.HOSX 10:36
PROVIDERS: Visit Provider Orthopaedic Surgery
DX: Z09 Encounter for follow-up examination after completed treatment for conditions other than malignant neoplasm (principal); Z87.39 Personal history of other diseases of the musculoskeletal system and connective tissue; Z98.890 Other specified postprocedural states
CPT/HCPCS: 73560

== ENCOUNTER 2024-08-17 10:55 | Outpatient (AMB) | payer OTHER, SELFPAY ==
--- NOTE | 2024-08-17 11:09 | A.OFFVIS_ITS ---
Intake Visit Reasons: PO RT ACL reconstruction 07/05/24 NE Intake Note: Michael is a 29 year old male who presents today for a post operative appointment about 6 weeks s/p right ACL reconstruction w/ allograft 07/05/24 NE. Patient reports that he is doing very good. He states about a week ago he was getting in the car and felt a pop in the posterior aspect of the knee. This was painful for a short period of time but has since resolved. Allergies No Known Allergies [No Known Allergies*] Allergy (Verified 07/13/24 13:14) HPI HPI PO RT ACL reconstruction 07/05/24 NE: Details: Michael is a 29 year old male who presents today for a post operative appointment about 6 weeks s/p right ACL reconstruction w/ allograft 07/05/24 NE. Patient reports that he is doing very good. He states about a week ago he was getting in the car and felt a pop in the posterior aspect of the knee. This was painful for a short period of time but has since resolved. [facility] Medical History Alcohol abuse Alcohol use disorder Family History Mother Depression Father Testicular cancer Social History (Updated 07/03/24 @ 12:31 by Vandana Grubbs RN) Household Members: None Housing: Condominium Are you a primary ocular care technician to a significant other at home: No Do you presently have visiting nurse or other home services: No 75 years or older and lives alone: No Alcohol intake: current Alcohol intake frequency: former alcohol drinker Patient Tobacco Use Status: Current everyday Tobacco user Tobacco use type: Cigarette Cigarettes Per Day: 20 Years Smoked: 10 Substance Use Type: Marijuana service: No Current occupational status: employed Current occupation: [employer] / [employer] Physical Exam Extrem Other: inc c/d/i No effusion stable arline and ant drawer full ROM Assessment & Plan Assessment & Plan (1) Status post reconstruction of anterior cruciate ligament: Code(s): Z98.890 - Other specified postprocedural states Category: Surgical Plan: Strengthening with PT. Avoid falls/ cutting motion. He has not been wearing brace. f/u 6 weeks Orders: Orders XR knee RT 2V Today Z98.890 - Other specified postprocedural states Coding Level of Care Code Global (65977) Diagnoses Status post reconstruction of anterior cruciate ligament Z98.890
== END 2024-08-17 11:23 | disposition home or self-care (01) ==
PROVIDERS: Visit Provider Orthopaedic Surgery
DX: Z98.890 Other specified postprocedural states (principal)
CPT/HCPCS: 99024

== ENCOUNTER → 2024-08-17 11:04 | Outpatient (BNV) | payer OTHER, SELFPAY | PROVIDERS: Visit Provider Specialist | DX: S83.511D Sprain of anterior cruciate ligament of right knee, subsequent encounter (principal) | CPT/HCPCS: 73560 ==

== ENCOUNTER 2024-08-22 14:00 | Outpatient (RCR) | payer OTHER, SELFPAY ==
--- NOTE | 2024-12-29 07:38 | MHC.PT.DC ---
[facility] [place] Office [place] Office [place] Office [address] Vipin Stephenson [address] [phone] F: [phone] F: [phone] F: [phone] F: [phone] Physical Therapy Discharge Report Diagnosis: s/p ACL recon 07/05/24 Date of Surgery: 07/05/24 Date of Evaluation: 07/14/24 Date of Discharge: Treatments to Date: 7 Cancellations to Date: No Shows to Date: Discharge Status: Independent with HEP Patient Elected to Stop Discharge Summary: 08/22/24: pt progressing well with skilled PT. strength improving as is ROM. continue to progress as tolerated. 08/15/24: pt progressing well overall with skilled PT. no adverse reactions. ROM continues to progress nicely. 08/01/24: added bike and # to SLR. continue to progress as tolerated. AAROM flexion to 106 07/25/24: pt progressing well with skilled PT. continue to progress per protocol. 07/21/24: pt progressing well with skilled PT. ROM progressing. no s/s of infection. 07/18; Pt brace was positioned properly. Knee swollen under patella. Patella mobility good. Fatigued after exs. Knee extension achiebed 0 after passive stretching. Patient is a 29 year old R handed male who presents with s/s consistent with s/p R ACL recon, R knee pain. 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 Patient past medical history includes alcohol abuse. Current impairments include pain, balance, ROM, strength, activity tolerance and functional mobility. Functional limitations include decreased ability to perform all standing and weight bearing activities, sleep. Patient is motivated with good rehab potential. Skilled PT will address impairments and functional limitations in order to achieve goals. Electronically signed by: Alexey Jones, PT Please sign and return to therapist. Thank you for your referral.
== END 2024-12-29 07:39 | disposition home or self-care (01) ==
LOC: HO.PTCHIC 14:00
PROVIDERS: PCP Family Medicine; Visit Provider Physician Assistant
DX: Z98.890 Other specified postprocedural states (principal)
CPT/HCPCS: 97110; 97161

== ENCOUNTER 2024-10-05 08:19 | Outpatient (REF) | payer OTHER, SELFPAY | END 2024-10-05 08:20 | disposition home or self-care (01) | LOC: HO.HOSX 08:19 | PROVIDERS: Visit Provider Orthopaedic Surgery | DX: Z13.89 Encounter for screening for other disorder (principal) ==

== ENCOUNTER 2025-04-05 08:32 | Outpatient (REF) | payer OTHER, SELFPAY ==
--- NOTE | ~2025-04-05 | XR_ITS ---
CLINICAL HISTORY: M25.569 - Pain in unspecified knee Bilateral standing, 2 view right knee Comparison: 08/17/2024 Findings: No fractures or dislocations. Evidence of previous right ACL repair with tibial anchor in position. No significant arthritic change or erosions. No joint effusion. No other radiopaque foreign body. IMPRESSION: 1. No acute findings. This document has been electronically signed by: Zeus Sanchez MD on 04/06/2025 10:48:42
== END 2025-04-05 08:33 | disposition home or self-care (01) ==
LOC: HO.HOSX 08:32
PROVIDERS: Visit Provider Physician Assistant
DX: M23.91 Unspecified internal derangement of right knee (principal); Z98.890 Other specified postprocedural states
CPT/HCPCS: 73562

== ENCOUNTER 2025-04-05 13:25 | Outpatient (AMB) | payer OTHER, SELFPAY ==
[2025-04-05 13:43] VITALS: BMI 26.9
--- NOTE | 2025-04-05 13:43 | A.OFFVIS_ITS ---
Vital Signs 04/05/25 13:43 Height 6 ft Weight 198 lb BMI 26.9 Intake Visit Reasons: O/V RT ACL reconstruction 07/05/24 NE/re-injury Intake Note: Michael is a 30 year old male who presents today for follow up of his Right ACL Reconstruction w/ Allograft 07/05/24 NE. Patient reports he re-injured his knee about a month ago while he was pipping. He complains of pain on the anterior aspect of the knee, exacerbated by prolonged standing. He is not taking anything for pain at this time but working on stretches. Allergies No Known Allergies (No Known Allergies*) Allergy (Verified 04/05/25 13:43) HPI HPI O/V RT ACL reconstruction 07/05/24 NE/re-injury: Details: Mr. Escalona is a 30-year-old male who presents to the office today for evaluation of a right knee injury that he sustained about 1 month ago while he was hiking. He states that he went to kick a branch out of the path and unfortunately the branch was routed deeply into the ground. It caused a twisting sensation to the right knee and he has had pain ever since with episod es of instability. [facility] Medical History Alcohol abuse Alcohol use disorder Family History Mother Depression Father Testicular cancer Social History (Updated 07/03/24 @ 12:31 by Vandana Grubbs RN) Household Members: None [facility] Are you a primary critical care registered nurse to a significant other at home: No Do you presently have visiting nurse or other home services: No 75 years or older and lives alone: No Alcohol intake: current Alcohol intake frequency: former alcohol drinker Patient Tobacco Use Status: Current everyday Tobacco user Tobacco use type: Cigarette Cigarettes Per Day: 20 Years Smoked: 10 Substance Use Type: Marijuana service: No Current occupational status: employed Current occupation: [employer] / [employer] Review of Systems Const All systems reviewed & are unremarkable except as noted in HPI and below Physical Exam Vital Signs: BMI result Body Mass Index 26.9 Const General: cooperative, healthy appearing and no acute distress Resp Effort & Inspection: normal respiratory effort and able to speak in complete sentences Extrem Other: Right knee prior ACL incision sites are noted. No erythema or warmth. No joint effusion. No signs of infection. Range of motion 0-120. Slight tenderness to palpation over the lateral joint line. Minimal laxity with anterior drawer but is slightly more prominent than the contralateral side after ACL reconstruction. Negative López's. NVI. Psych Appearance: grossly normal Mental Status: mental status grossly normal Attitude: cooperative Assessment & Plan Assessment & Plan (1) Status post reconstruction of anterior cruciate ligament: Code(s): Z98.890 - Other specified postprocedural states Category: Surgical (2) Internal derangement of right knee: Code(s): M23.91 - Unspecified internal derangement of right knee Category: Medical Plan Mr. Escalona is a 30-year-old male who presents to the office today for evaluation of a right knee injury that he sustained about 1 month ago while he was hiking. He states that he went to kick a branch out of the path and unfortunately the branch was routed deeply into the ground. It caused a twisting sensation to the right knee and he has had pain ever since with episodes of instability. While the office today, we discussed MRI imaging to further evaluate the integrity of the right knee ACL reconstruction and surrounding structures. Patient is amenable to this plan. He will follow up after the MRIs obtained, sooner if needed. X-rays of the right knee which were obtained while in the office today and were reviewed by me, Nancy Lloyd PA-C, revealed no acute fracture or dislocation. Prior ACL Endobutton is well placed against the lateral femoral condyle. There is evidence of a tibial interference screw in place. Orders: Orders XR knee RT 3V Today M25.569 - Pain in unspecified knee MR knee RT wo con Today M23.91 - Unspecified internal derangement of right knee, Z98.890 - Other specified postprocedural states Coding Level of Care Code Est Pt Level 3 (01987) Diagnoses Status post reconstruction of anterior cruciate ligament Z98.890 Internal derangement of right knee M23.91
== END 2025-04-05 13:59 | disposition home or self-care (01) ==
LOC: HO.HOS 13:26
PROVIDERS: Visit Provider Physician Assistant
DX: Z47.89 Encounter for other orthopedic aftercare (principal); S83.511D Sprain of anterior cruciate ligament of right knee, subsequent encounter; M23.91 Unspecified internal derangement of right knee
CPT/HCPCS: 99213

== ENCOUNTER → 2025-04-05 13:27 | Outpatient (BNV) | payer OTHER, SELFPAY | PROVIDERS: Visit Provider Specialist | DX: M25.561 Pain in right knee (principal) | CPT/HCPCS: 73562 ==

== ENCOUNTER → 2025-05-13 19:25 | Outpatient (BNV) | payer OTHER, SELFPAY | PROVIDERS: PCP Family Medicine; Visit Provider Radiology Diagnostic Ultrasound | DX: M17.11 Unilateral primary osteoarthritis, right knee (principal); Z98.890 Other specified postprocedural states | CPT/HCPCS: 73721 ==

== ENCOUNTER 2025-05-13 19:26 | Outpatient (REF) | payer OTHER, SELFPAY ==
--- NOTE | ~2025-05-13 | MR_ITS ---
EXAMINATION: MR KNEE WITHOUT CONTRAST, RIGHT CLINICAL INFORMATION: Evaluate possible re-tear of the ACL. Prior ACL reconstruction 07/05/2024 COMPARISON: MRI 04/12/2024 TECHNIQUE: MRI of the knee without contrast was performed using routine sequences on a high-field scanner. FINDINGS: MENISCI: Medial Meniscus: Redemonstrated is increased T2 signal in the periphery of the posterior horn, with decrease in intensity of the signal as compared to previous. Inner margin blunting in the posterior root, and focal horizontal signal extending to the superior articular surface in the central posterior horn. Findings are new as compared to previous. This could reflect postsurgical result, or age-indeterminate tear. Lateral Meniscus: Intact LIGAMENTS: Cruciate: Status post ACL reconstruction. Signal is within normal limits. No graft laxity, discontinuity is seen. There is intermediate/low T2 signal in the intercondylar region along the superior and inferior aspect of the graft, as seen on the sagittal sequence. This raises the possibility of arthrofibrosis. Intact PCL. Collateral: Intact EXTENSOR MECHANISM: Intact ARTICULAR CARTILAGE/BONE: Patellofemoral Compartment: Cartilage irregularity in the inferior lateral patella facet, similar to previous. Medial Compartment: No significant chondral loss Lateral Compartment: No significant chondral loss JOINT FLUID AND BURSAE: Small joint fluid. No significant Casas's cyst. MR/MR knee RT wo con IMPRESSION: * Status post ACL reconstruction. The ACL graft appears intact. Intermediate/low signal in the intercondylar region along the superior and inferior aspect of the graft, could reflect arthrofibrosis. Clinically correlate. * Findings along the peripheral aspect of the medial meniscal posterior horn, less prominent as compared to previous, could evaluation of the previously noted tear, postsurgical changes, less likely recurrent tear. Findings in the posterior root/central posterior horn, appearing new as compared to previous study, could represent postsurgical result or a definite tear. Correlate with surgical history. 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 Electronically signed by: Karson Hurt MD 05/14/2025 11:38 AM [facility] [place]
== END 2025-05-13 19:27 | disposition home or self-care (01) ==
LOC: HO.MRI 19:26
PROVIDERS: PCP Family Medicine; Visit Provider Physician Assistant
DX: Z98.890 Other specified postprocedural states (principal); M23.91 Unspecified internal derangement of right knee
CPT/HCPCS: 73721

== ENCOUNTER 2025-06-04 13:00 | Outpatient (AMB) | payer OTHER, SELFPAY ==
--- NOTE | 2025-06-04 13:05 | A.OFFVIS_ITS ---
Intake Visit Reasons: OV - right knee MRI review Intake Note: Michael is a 30 year old male who presents today for a MRI review for his right knee. Patient reports still having pain in his right knee. No changes in pain. IMPRESSION: * Status post ACL reconstruction. The ACL graft appears intact. Intermediate/low signal in the intercondylar region along the superior and inferior aspect of the graft, could reflect arthrofibrosis. Clinically correlate. * Findings along the peripheral aspect of the medial meniscal posterior horn, less prominent as compared to previous, could evaluation of the previously noted tear, postsurgical changes, less likely recurrent tear. Findings in the posterior root/central posterior horn, appearing new as compared to previous study, could represent postsurgical result or a definite tear. Correlate with surgical history. 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 Allergies No Known Allergies (No Known Allergies*) Allergy (Verified 06/04/25 13:16) HPI HPI OV - right knee MRI review: Details: The patient is a 30-year-old male who presents to the office today for MRI review of the right knee. Patient has a past ACL reconstruction on 07/05/[address] Mcdaniel. Patient reports that roughly 3 months ago he was hiking want to go and kick a branch that was stuck into the ground causing his knee to twist with an increase in pain. Initially he was feeling episodes of instability which has since resolved. Now he reports that he has continued posterolateral knee pain. FORMERLY [facility], [facility]–1983 Medical History Alcohol abuse Alcohol use disorder Family History Mother Depression Father Testicular cancer Social History Household Members: None Housing: Condominium Are you a primary clinical care coordinator to a significant other at home: No Do you presently have visiting nurse or other home services: No 75 years or older and lives alone: No Alcohol intake: current Alcohol intake frequency: former alcohol drinker Patient Tobacco Use Status: Current everyday Tobacco user Tobacco use type: Cigarette Cigarettes Per Day: 20 Years Smoked: 10 Substance Use Type: Marijuana service: No Current occupational status: employed 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 No erythema or warmth. No joint effusion. No signs of infection. Range of motion 0-120. Slight tenderness to palpation over the lateral joint line. Minimal laxity with anterior drawer but is slightly more prominent than the contralateral side after ACL reconstruction. Negative López's. NVI. Psych Appearance: grossly normal Mental Status: mental status grossly normal Attitude: cooperative Assessment & Plan Assessment & Plan (1) Internal derangement of right knee: Code(s): M23.91 - Unspecified internal derangement of right knee Category: Medical Plan The patient is a 30-year-old male who presents to the office today for MRI review of the right knee. Patient has a past ACL reconstruction on 07/05/[address] Mcdaniel. Patient reports that roughly 3 months ago he was hiking want to go and kick a branch that was stuck into the ground causing his knee to twist with an increase in pain. Initially he was feeling episodes of instability which has since resolved. Now he reports that he has continued posterolateral knee pain. While the office today, I reviewed the MRI imaging with Dr. Mcdaniel who was available but did not see the patient with me in a collaborative treatment plan was created. Postsurgical changes are noted on the MRI imaging. ACL graft appears to be intact. I have recommended the patient attend physical therapy in which he will consider this as an option and contact our office should he wish to move forward with this. Additionally, I recommended using a knee brace with activities. I did offer to fit the patient for a knee brace while in the office today however he declined stating that he does have several knee braces at home. He will follow up with [facility] sooner if needed MRI of the right knee obtained on 05/13/2025: IMPRESSION: * Status post ACL reconstruction. The ACL graft appears intact. Intermediate/low signal in the intercondylar region along the superior and inferior aspect of the graft, could reflect arthrofibrosis. Clinically correlate. * Findings along the peripheral aspect of the medial meniscal posterior horn, less prominent as compared to previous, could evaluation of the previously noted tear, postsurgical changes, less likely recurrent tear. Findings in the posterior root/central posterior horn, appearing new as compared to previous study, could represent postsurgical result or a definite tear. Correlate with surgical history. 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 Coding Level of Care Code Est Pt Level 3 (65587) Add On Problem Visit Only Diagnoses Internal derangement of right knee M23.91
== END 2025-06-04 13:54 | disposition home or self-care (01) ==
LOC: HO.HOS 13:00
PROVIDERS: PCP Family Medicine; Visit Provider Physician Assistant
DX: M23.91 Unspecified internal derangement of right knee (principal)
CPT/HCPCS: 99213; G2211